=== PATIENT | female | born 1955 | race Caucasian/White ===

== ENCOUNTER 2023-10-30 11:32 | Outpatient (AMB) | payer MEDICARE, MEDICAID, SELFPAY ==
--- NOTE | 2023-10-30 11:32 | A.OFFPC_ITS ---
Vital Signs 10/30/23 11:40 Height 4 ft 9.87 in Weight 143 lb BMI 30.0 BP 134/80 Blood Pressure Location Rt brachial Position Sitting Respiration 14 Pulse 101 H Pulse Source Pulse Oximeter Temp 97.9 F Temp Source Oral Pulse Oximetry (%) 96 Oxygen Delivery Method Room Air Intake Visit Reasons: MAHESH From [facility] Intake Note: New patient visit Hole Puncher Strap Required: No Allergies No Known Allergies Allergy (Verified 10/30/23 11:37) Medication List - Last Reconciled 10/30/23 by Kerline Cruz PA-C amitriptyline 25 mg PO BEDTIME amlodipine 5 mg PO DAILY gabapentin 100 mg PO TID rosuvastatin 20 mg PO BEDTIME Tobacco use date assessed: 10/30/23 Fall risk assessment: No Falls in past year Last assessed Fall Risk: 10/30/23 Dental Screening Dental Screen Date: 10/30/23 Did you have a dental visit in the last 12 months?: No Did you have a dental problem in the last 6 months where you did not have access to dental care?: No Was dental information given to patient?: Patient declined HPI MAHESH From [facility] HPI Details Patient is a 68-year-old female with a significant past medical history hypertension, hyperlipidemia, anxiety, chronic neck pain and ifg. CV: bp today 134/80 Psych: She recently lost her brother this last year then a few months ago lost her sister from [place]. She states unexpectedly this last month she lost her sister. She states that her sister who she was close with called her in the middle of the night and on the phone with her. No SI/HI. -living with her other sister as she has dementia which has also been a stre ssor. She states she will not leave her. Musculoskeletal: Still has ongoing neck pain. Does not want to see physiatry yet. She feels ok with gabapentin and amitriptyline. She uses fioricet intermittently. Colonoscopy is scheduled in November Mammo: [id number] Bone density: UTD, -osteopenia [facility] Medical History (Updated 10/30/23 @ 12:08 by Kerline Cruz PA-C) Tension headache IFG (impaired fasting glucose) Hyperlipidemia HTN (hypertension) Generalized anxiety disorder Chronic neck pain Alkaline phosphatase elevation Surgical History (Updated 10/30/23 @ 11:48 by Ambika Haines CMA) S/P cervical discectomy Family History (Updated 10/30/23 @ 11:49 by Ambika Haines CMA) Mother Colon cancer Heart attack Social History Housing: Other (mobile home with sister) Cigarette Packs Per Day: 1 Cigarettes Per Day: 10 Years Smoked: 2 e-Cigarette/Vaping Use: Never Used service: No Current occupational status: retired Cognitive needs: No Vision needs: Yes (glasses) Questionnaire AUDIT C Alcohol Use Questionnaire (AUDIT-C) 1. How often do you have a drink containing alcohol?: Never 3. How often do you have six or more drinks on one occasion?: Never Total Score: 0 Physical exam (Primary Care) Const Orientation/consciousness: patient oriented x3 HENMT Ears: hearing grossly normal bilaterally Neck Thyroid: Thyroid normal Lymphatic: no lymphadenopathy noted Resp Auscultation: clear to auscultation bilaterally Cardio Rate: regular rate Rhythm: regular rhythm Heart sounds: S1 normal heart sound present and S2 normal heart sound present GI Inspection: Yes normal to inspection Palpation (GI): Soft to palpation and Other GI palpation findings present (nontender, no cva tenderness) Auscultation: normoactive bowel sounds Rectal Exam - Female: deferred Skin General skin exam: no rashes or lesions noted Neuro General: patient oriented x3, gait normal and no focal motor deficits Assessment and Plan Assessment & Plan (1) Generalized anxiety disorder: Code(s): F41.1 - Generalized anxiety disorder Plan: offered referral to [facility] right now. (2) HTN (hypertension): Code(s): I10 - Essential (primary) hypertension Qualifiers: Hypertension type: primary hypertension Qualified Code(s): I10 - Essential (primary) hypertension Plan: bp wnl. continue current plan (3) Hyperlipidemia: Code(s): E78.5 - Hyperlipidemia, unspecified Qualifiers: Hyperlipidemia type: mixed hyperlipidemia Qualified Code(s): E78.2 - Mixed hyperlipidemia Plan: continue crestor. lfts and lipids ordered (4) IFG (impaired fasting glucose): Code(s): R73.01 - Impaired fasting glucose Plan: a1c ordered (5) Tension headache: Code(s): G44.209 - Tension-type headache, unspecified, not intractable Plan: continue current treatment plan Orders: Orders Comprehensive [place]. Panel Fast Today E78.5 - Hyperlipidemia, unspecified, F41.1 - Generalized anxiety disorder, G44.209 - Tension-type headache, unspecified, not intractable, I10 - Essential (primary) hypertension, R73.01 - Impaired fasting glucose TSH reflex Free T4 Today E78.5 - Hyperlipidemia, unspecified, F41.1 - Generalized anxiety disorder, G44.209 - Tension-type headache, unspecified, not intractable, I10 - Essential (primary) hypertension, R73.01 - Impaired fasting glucose Lipid Panel Today E78.5 - Hyperlipidemia, unspecified, F41.1 - Generalized anxiety disorder, G44.209 - Tension-type headache, unspecified, not intractable, I10 - Essential (primary) hypertension, R73.01 - Impaired fasting glucose Hemoglobin A1c Today R73.01 - Impaired fasting glucose Medications: New amitriptyline 25 mg PO BEDTIME 90 tabs 3RF amlodipine 5 mg PO DAILY 90 tabs 3RF ausihtlymc-krmxeetrnmxvj-afnq 50-300-40 mg (Fioricet) 1 cap PO Q8H PRN 30 caps 0RF pain gabapentin 100 mg PO TID 90 days 270 caps 3RF rosuvastatin 20 mg PO BEDTIME 90 tabs 3RF Coding Level of Care Code Est Pt Level 4 (08732) Complex EM visit Add On G2211 Diagnoses Generalized anxiety disorder F41.1 Primary hypertension I10 Hypertension type: primary hypertension Mixed hyperlipidemia E78.2 Hyperlipidemia type: mixed hyperlipidemia IFG (impaired fasting glucose) R73.01 Tension headache G44.209
[2023-10-30 11:40] VITALS: BP 134/80; PULSE 101; RESP 14; TEMP 36.6; O2SAT 96
== END 2023-10-30 12:22 | disposition home or self-care (01) ==
PROVIDERS: PCP Physician Assistant; Visit Provider Physician Assistant
DX: F41.1 Generalized anxiety disorder (principal); I10 Essential (primary) hypertension; E78.2 Mixed hyperlipidemia; R73.01 Impaired fasting glucose; G44.209 Tension-type headache, unspecified, not intractable
CPT/HCPCS: 99214; G2211

== ENCOUNTER 2023-12-04 09:14 | Outpatient (AMB) | payer MEDICARE, MEDICAID, SELFPAY ==
--- NOTE | 2023-12-04 09:39 | MHC.PC.OV ---
Vital Signs 12/04/23 09:40 Height 4 ft 9.87 in Weight 143 lb BMI 30.0 BP 110/80 Blood Pressure Location Lt brachial Position Sitting Respiration 14 Pulse 80 Pulse Source Pulse Oximeter Pulse Oximetry (%) 97 Oxygen Delivery Method Room Air Intake Visit Reasons: bp check, grief check Cosmetics Demonstrator Required: No Allergies No Known Allergies Allergy (Verified 12/04/23 09:39) Medication List - Last Reconciled 12/04/23 by Kerline Cruz PA-C amitriptyline 25 mg PO BEDTIME amlodipine 5 mg PO DAILY nahrdtcvtr-zboiokwiirrww-smkt 50-300-40 mg (Fioricet) 1 cap PO Q8H PRN gabapentin 100 mg PO TID 90 days rosuvastatin 20 mg PO BEDTIME Tobacco use date assessed: 10/30/23 Dental Screening Dental Screen Date: 10/30/23 HPI bp check, grief check HPI Details Patient is a 68-year-old female with a significant past medical history hypertension, hyperlipidemia, anxiety, chronic neck pain and ifg. CV: bp today 110/80. on norvasc and tolerates this well. Psych: She recently lost her brother this last year then a few months ago lost her sister from [place]. She states unexpectedly this last month she lost her sister. She states that her sister who she was close with called her in the middle of the night and on the phone with her. No SI/HI. She states that the amitriptyline is helpful for calming her down at night but sometimes she gets panic attacks at night and has a hard time falling asleep. -living with her other sister as she has dementia which has also been a stressor. She states she will not leave her. Musculoskeletal: Still has ongoing neck pain. Does not want to see physiatry yet. She feels ok with gabapentin and amitriptyline. She uses fioricet intermittently. Colonoscopy: she rescheduled to April. Mother had colon ca. Mammo: UTD, 2023 Bone density: UTD, -osteopenia [facility] Medical History (Updated 10/30/23 @ 12:08 by Kerline Cruz PA-C) Tension headache IFG (impaired fasting glucose) Hyperlipidemia HTN (hypertension) Generalized anxiety disorder Chronic neck pain Alkaline phosphatase elevation Surgical History S/P cervical discectomy Family History (Updated 10/30/23 @ 11:49 by Ambika Haines CMA) Mother Colon cancer Heart attack Social History (Updated 10/30/23 @ 11:40 by Ambika Haines CMA) Housing: Other (mobile home with sister) Cigarette Packs Per Day: 1 Cigarettes Per Day: 10 Years Smoked: 2 e-Cigarette/Vaping Use: Never Used service: No Current occupational status: retired Cognitive needs: No Vision needs: Yes (glasses) Questionnaire PHQ-9 Over the last 2 weeks, how often have you been bothered by any of the following problems? 1. Little interest or pleasure in doing things: several days 2. Feeling down, depressed, or hopeless: several days 3. Trouble falling or staying asleep, or sleeping too much: several days 4. Feeling tired or having little energy: several days 5. Poor appetite or overeating: several days 6. Feeling bad about yourself - or that you are a failure or have let yourself or your family down: several days 7. Trouble concentrating on things, such as reading the newspaper or watching television: several days 8. Moving or speaking so slowly that other people could have noticed. Or the opposite - being so fidgety or restless that you have been moving around a lot more than usual: several days 9. Thoughts that you would be better off or of hurting yourself in some way: not at all Total score: 8 Depression Screening Interpretation: Positive Depression Screening Done: Yes 13386 - PHQ-9 Billing: Yes Source: Developed by Drs. Colin Sinclair, Sheeba Delarosa, Bronson Laurent and colleagues, with an educational neris from [employer]. LOVE-7 AMB Questionnaire LOVE-7 Date LOVE - 7 assessed: 12/04/23 Feeling nervous, anxious, or on edge: 1 = Several days Not being able to stop or control worryin = Several days Worrying too much about different things: 1 = Several days Trouble relaxin = Several days Being so restless that it is hard to sit still: 1 = Several days Becoming easily annoyed or irritable: 1 = Several days Feeling afraid as if something awful might happen: 1 = Several days Total LOVE-7 score (0-4 normal; 5-9 mild; 10-14 moderate; 15-21 severe): 7 Source: Developed by Drs. Colin Sinclair, Sheeba Delarosa, Bronson Laurent and colleagues, with an educational neris from [employer]. LOVE-7 Assessment Billing LOVE-7 Assessment Tool: LOVE-7 Assessment 01796 Physical exam (Primary Care) Vital Signs: Last Vital Signs Pulse 80 12/04/23 09:40 Resp 14 12/04/23 09:40 BP 110/80 12/04/23 09:40 Pulse Ox 97 12/04/23 09:40 Oxygen Delivery Method Room Air 12/04/23 09:40 BMI result Body Mass Index 30.0 Tobacco/Smoking Status: Tobacco use Status Tobacco use date assessed 10/30/23 12/04/23 09:41 e-Cigarette/Vaping Use Never Used 12/04/23 09:41 PHQ-9: PHQ-9 Score PHQ-9: Total score 8 12/04/23 10:06 Depression Screening Interpretation: Positive Const Orientation/consciousness: patient oriented x3 HENMT Ears: hearing grossly normal bilaterally Neck Thyroid: Thyroid normal Lymphatic: no lymphadenopathy noted Resp Auscultation: clear to auscultation bilaterally Cardio Rate: regular rate Rhythm: regular rhythm Heart sounds: S1 normal heart sound present and S2 normal heart sound present GI Inspection: Yes normal to inspection Palpation (GI): Soft to palpation and Other GI palpation findings present (nontender, no cva tenderness) Auscultation: normoactive bowel sounds Rectal Exam - Female: deferred Skin General skin exam: no rashes or lesions noted Neuro General: patient oriented x3, gait normal and no focal motor deficits Results Reviewed Results Reviewed: We will request records from [facility] Assessment and Plan Assessment & Plan (1) Hyperlipidemia: Code(s): E78.5 - Hyperlipidemia, unspecified Qualifiers: Hyperlipidemia type: mixed hyperlipidemia Qualified Code(s): E78.2 - Mixed hyperlipidemia Plan: on crestor. states that last lipids and lfts were wnl (2) HTN (hypertension): Code(s): I10 - Essential (primary) hypertension Qualifiers: Hypertension type: primary hypertension Qualified Code(s): I10 - Essential (primary) hypertension Plan: wnl today (3) IFG (impaired fasting glucose): Code(s): R73.01 - Impaired fasting glucose Plan: states she did the a1c at [facility]. she does not know her results yet (4) Generalized anxiety disorder: Code(s): F41.1 - Generalized anxiety disorder Plan: declines bh. continue amitriptyline. We will start on hydroxyzine. Discussed risks and benefits and adverse effects. Advised to avoid drinking or driving while taking this medication. Medications: New hydroxyzine HCl 25 mg PO BID PRN 30 tabs 0RF anxiety 30 days Coding Level of Care Code Est Pt Level 4 (24470) Diagnoses Mixed hyperlipidemia E78.2 Hyperlipidemia type: mixed hyperlipidemia Primary hypertension I10 Hypertension type: primary hypertension IFG (impaired fasting glucose) R73.01 Generalized anxiety disorder F41.1 Additional Codes LOVE-7 Assessment Billing - LOVE-7 Assessment Tool: LOVE-7 Assessment 58015 ([id number])
[2023-12-04 09:40] VITALS: BP 110/80; PULSE 80; RESP 14; O2SAT 97
== END 2023-12-04 10:28 | disposition home or self-care (01) ==
PROVIDERS: PCP Physician Assistant; Visit Provider Physician Assistant
DX: E78.2 Mixed hyperlipidemia (principal); I10 Essential (primary) hypertension; R73.01 Impaired fasting glucose; F41.1 Generalized anxiety disorder
CPT/HCPCS: 96127; 99214

== ENCOUNTER 2024-04-09 11:31 | Outpatient (AMB) | payer MEDICARE, MEDICAID, SELFPAY ==
--- NOTE | 2024-04-09 11:32 | A.OFFPC_ITS ---
Vital Signs 04/09/24 11:36 Height 4 ft 9.87 in Weight 145 lb 4 oz BMI 30.5 BP 138/78 Blood Pressure Location Rt brachial Position Sitting Respiration 14 Pulse 87 Pulse Source Pulse Oximeter Pulse Oximetry (%) 97 Oxygen Delivery Method Room Air Intake Visit Reasons: Persistent heartburn Intake Note: Patient complaining of persistent heartburn x couple of months Pit Slagman Required: No Allergies No Known Allergies Allergy (Verified 04/09/24 11:33) Tobacco use date assessed: 04/09/24 Fall risk assessment: No Falls in past year Last assessed Fall Risk: 04/09/24 Dental Screening Dental Screen Date: 10/30/23 HPI HPI Comments History of Present Illness Details This is a 69-year-old female with a past medical history of anxiety, hypertension, impaired fasting glucose and hyperlipidemia presenting for evaluation of acid reflux. Patient said that reflux symptoms started pretty suddenly about 4 months ago. She describes reflux as a burning in the epigastric and substernal distribution. She sometimes she taste the acid in her mouth. She does not vomit. She started taking omeprazole 20 mg hcjd-bbg-vapxlvy which helped so she increased it to 1 tab twice a day which alleviates symptoms. She ran out of it yesterday. She does not have reflux symptoms today. She avoid spicy foods. She does not drink coffee or alcohol. She does not have a lot of acidic foods in her diet. To avoid symptoms she is sleeping with her head propped up at night. She did not have issues with reflux prior to this. She denies unexplained weight loss, fevers, chills, stool changes or blood in stools. She denies chest pain, shortness of breath, dizziness or radiation of pain to the neck or arms. She has a strong family history of cardiac disease. Patient had a brother and sister from heart attacks within the past year, and her father previously from a heart attack. Patient recalls having a stress test [place] which was normal. She denies indigestion symptoms worsen with exertion. Patient says she had blood work to check her cholesterol and other labs within the past few months at [facility], but the results are not in her chart. She is compliant with her medications including rosuvastatin 20 mg and amlodipine 5 mg. Her blood pressure is mildly elevated today. ROS: Constitutional: No unexplained weight loss, fever, chills, fatigue or night sweats. Respiratory: No shortness of breath, cough or sputum production. Cardiovascular: No chest pain or heaviness. No palpitations or pedal edema. Gastrointestinal: No anorexia, nausea, vomiting or diarrhea. No abdominal pain or blood in stool. Neurologic: No headache, dizziness, syncope, unilateral weakness, ataxia, numbness or tingling in the extremities. Physical exam: Constitutional: Alert, in no distress. Head: Normocephalic. Neck: Supple, Full range of motion. No lymphadenopathy. Respiratory: Clear to auscultation. Cardiovascular: S1 S2 regular. No murmurs. Gastrointestinal: Abdomen soft, mild epigastric tenderness. non-distended. Normal bowel sounds. No palpable masses. Extremities: Warm and well perfused. No clubbing, cyanosis or edema. Psychiatric: Normal mood and affect [facility] Medical History (Updated 04/09/24 @ 12:27 by ROULA Brown) Family history of sudden cardiac GERD (gastroesophageal reflux disease) Chest discomfort Tension headache IFG (impaired fasting glucose) Hyperlipidemia HTN (hypertension) Generalized anxiety disorder Chronic neck pain Alkaline phosphatase elevation Surgical History S/P cervical discectomy Family History (Updated 10/30/23 @ 11:49 by Ambika Haines CMA) Mother Colon cancer Heart attack Social History (Updated 10/30/23 @ 11:40 by Ambika Haines CMA) Housing: Other (mobile home with sister) Patient Tobacco Use Status: Former Tobacco user Cigarette Packs Per Day: 1 Cigarettes Per Day: 10 Years Smoked: 2 e-Cigarette/Vaping Use: Never Used service: No Current occupational status: retired Cognitive needs: No Hearing needs: No Vision needs: Yes (glasses) Questionnaire PHQ-9 Over the last 2 weeks, how often have you been bothered by any of the following problems? 24571 - PHQ-9 Billing: Patient declined-do not bill Source: Developed by Drs. Colin Sinclair, Sheeba Delarosa, Bronson Laurent and colleagues, with an educational neris from [email or web address]. Thrive Questionnaire Date Thrive assessed: 04/09/24 I am a: Patient What is your living situation today?: I have a steady place to live Within the past 12 months, did the food you bought not last and you didn't have the money to get more?: Never true Within the past 12 months, did you worry whether your food would run out before you got money to buy more?: Never true Do you have trouble paying for medicines?: No Do you have trouble getting transportation to medical appointments?: No Do you have trouble paying your heating and electricity bill?: No Do you have trouble taking care of your child, family member or friend?: No Do you have trouble with day-to-day activities such as bathing, preparing meals, shopping, managing finances, etc.?: No Are you currently unemployed and looking for a job?: No Are you interested in more education?: No Please select the resources that you would like help with: None Currently or been in a relationship where the following occur: No concerns reported THRIVE Score: 0 AUDIT C Alcohol Use Questionnaire (AUDIT-C) 1. How often do you have a drink containing alcohol?: Monthly or less 2. How many drinks containing alcohol do you have on a typical day when you are drinking?: 1 or 2 3. How often do you have six or more drinks on one occasion?: Never Total Score: 1 LOVE-7 AMB Questionnaire LOVE-7 Date LOVE - 7 assessed: 04/09/24 Feeling nervous, anxious, or on edge: 1 = Several days Not being able to stop or control worryin = Several days Worrying too much about different things: 1 = Several days Trouble relaxin = Several days Being so restless that it is hard to sit still: 1 = Several days Becoming easily annoyed or irritable: 0 = Not at all Feeling afraid as if something awful might happen: 1 = Several days Total LOVE-7 score (0-4 normal; 5-9 mild; 10-14 moderate; 15-21 severe): 6 Source: Developed by Drs. Colin Sinclair, Sheeba Delarosa, Bronson Laurent and colleagues, with an educational neris from [email or web address]. LOVE-7 Assessment Billing LOVE-7 Assessment Tool: LOVE-7 Assessment 91367 Physical exam (Primary Care) Vital Signs: Last Vital Signs Pulse 87 04/09/24 11:36 Resp 14 04/09/24 11:36 BP 138/78 04/09/24 11:36 Pulse Ox 97 04/09/24 11:36 Oxygen Delivery Method Room Air 04/09/24 11:36 BMI result Body Mass Index 30.5 Tobacco/Smoking Status: Tobacco use Status Tobacco use date assessed 04/09/24 04/09/24 11:38 Patient Tobacco Use Status Former Tobacco user 04/09/24 11:38 e-Cigarette/Vaping Use Never Used 04/09/24 11:38 Thrive Assessment: Date of Thrive Assessment Date Thrive assessed 04/09/24 04/09/24 11:38 Currently or been in a relationship where the following occur: No concerns re ported Office Procedures EKG Details: EKG shows normal sinus rhythm and ventricular rate of 84 beats per minute, no ischemic changes. Reviewed by Dr. Arizmendi. 01400-Tuzargsttuwndioma, Complete Coding Level of Care Code Est Pt Level 4 (06413) Complex EM visit Add On G2211 Diagnoses GERD (gastroesophageal reflux disease) K21.9 Chest discomfort R07.89 Family history of sudden cardiac Z82.41 CPT Codes EKG - CPT: 18429-Izswukkzgvokmyvfv, Complete ([id number]) Additional Codes LOVE-7 Assessment Billing - LOVE-7 Assessment Tool: LOVE-7 Assessment 58606 ([id number]) Assessment & Plan Assessment & Plan (1) GERD (gastroesophageal reflux disease): Code(s): K21.9 - Gastro-esophageal reflux disease without esophagitis Category: Medical (2) Chest discomfort: Code(s): R07.89 - Other chest pain Category: Medical (3) Family history of sudden cardiac : Code(s): Z82.41 - Family history of sudden cardiac Category: Medical Plan Patient reports chest burning associated with reflux is alleviated when she takes omeprazole 20 mg twice daily which supports diagnosis of GERD. EKG shows no ischemic changes. Given epigastric discomfort and persistent reflux we will check labs and consider referral to Gastroenterology for further evaluation pending results. Differential includes H pylori infection. Patient advised to remain off omeprazole which she stopped yesterday. Start Pepcid 20 mg twice daily, stop it after 2 weeks and perform H pylori stool test 24 hours after last dose. After the stool sample is collected she can resume Pepcid. She has multiple cardiac risk factors and two cardiac sudden deaths of siblings within the past year and a parent who of a heart attack. We will proceed with nuclear stress test. We will follow up based on test results. She has a follow up scheduled in [facility] with PCP. Orders: Orders H pylori Ag Stool Today K21.9 - Gastro-esophageal reflux disease without esophagitis Complete Blood Count no Diff Today K21.9 - Gastro-esophageal reflux disease without esophagitis Comprehensive Met. Panel Today K21.9 - Gastro-esophageal reflux disease without esophagitis Amylase Today K21.9 - Gastro-esophageal reflux disease without esophagitis CA stress test Today R94.31 - Abnormal electrocardiogram [ECG] [EKG] AMB EKG-In Office Today R07.89 - Other chest pain Lipase Today K21.9 - Gastro-esophageal reflux disease without esophagitis NM cardiolite stress test Today R07.89 - Other chest pain, Z82.41 - Family history of sudden cardiac Medications: New famotidine 20 mg PO BID 60 tabs 3RF Patient Instructions: Take Famotidine 20 mg twice daily. Stop medication in 2 weeks, then perform H. pylori stool test 24 hours after last dose of medication. You can then resume the medication once the sample is collected.
[2024-04-09 11:36] VITALS: BP 138/78; PULSE 87; RESP 14; O2SAT 97; BMI 30.5
== END 2024-04-09 12:22 | disposition home or self-care (01) ==
PROVIDERS: PCP Physician Assistant; Visit Provider Physician Assistant Medical
DX: K21.9 Gastro-esophageal reflux disease without esophagitis (principal); R07.89 Other chest pain; Z82.41 Family history of sudden cardiac death

== ENCOUNTER → 2024-04-09 11:31 | Outpatient (BNVA) | payer MEDICARE, MEDICAID, SELFPAY | PROVIDERS: PCP Physician Assistant; Visit Provider Physician Assistant Medical | DX: K21.9 Gastro-esophageal reflux disease without esophagitis (principal); R07.9 Chest pain, unspecified; Z82.41 Family history of sudden cardiac death | CPT/HCPCS: 93005; 96127; 99212 ==

== ENCOUNTER 2024-06-03 08:38 | Outpatient (AMB) | payer MEDICARE, MEDICAID, SELFPAY ==
--- NOTE | 2024-06-03 08:45 | A.OFFPC_ITS ---
Vital Signs 06/03/24 08:48 Height 4 ft 9.87 in Weight 145 lb 8 oz BMI 30.5 BP 114/82 Blood Pressure Location Rt brachial Position Sitting Respiration 14 Pulse 90 Pulse Source Pulse Oximeter Pulse Oximetry (%) 98 Oxygen Delivery Method Room Air Intake Visit Reasons: f/u bp and anxiety Intake Note: Follow up htn and anxiety. Still having heartburn, medication is not working. [facility] Pharmacy Required: No Allergies No Known Allergies Allergy (Verified 06/03/24 08:45) Medication List - Last Reconciled 06/03/24 by Kerline Cruz PA-C amitriptyline 25 mg PO BEDTIME amlodipine 5 mg PO DAILY mhywlskgdc-hrjnttvqwnmns-vjzm 50-300-40 mg (Fioricet) 1 cap PO Q8H PRN gabapentin 100 mg PO TID 90 days hydroxyzine HCl 25 mg PO BID PRN 30 days rosuvastatin 20 mg PO BEDTIME Tobacco use date assessed: 06/03/24 Dental Screening Dental Screen Date: 10/30/23 HPI f/u bp and anxiety HPI Details History of Present Illness Patient is a 69-year-old female with a significant past medical history hypertension, hyperlipidemia, anxiety, chronic neck pain and ifg. CV: bp today 114/82. on norvasc and tolerates this well. She has an upcoming stress test. recently saw my colleague for atypical chest pain but does have a fam hx of sudden cardiac . It was felt that the chest pain was related to GERD. GI: Her symptoms of GERD began recently and have become progressively bothersome, particularly manifesting as heartburn and regurgitation after meals. The patient reports that the sensation of food getting stuck and a burning symptom worsens at night. She has tried hiuv-vvn-syffhhy famotidine and omeprazole, with minimal relief. The symptoms are exacerbated by lying down and certain food triggers. The patient experiences temporary improvement with omeprazole, although cost poses an issue. The patient's dysphagia, described as a sensation of food sticking in the throat, occurs inconsistently. She denies choking but reports discomfort when food feels trapped in the throat until it is released by burping. Psych: She recently lost her brother this last year then a few months ago lost h er sister from [place] and her niece. She states unexpectedly this last month she lost her sister. No SI/HI. She states that the amitriptyline is helpful for calming her down at night but sometimes needs hydroxyizine. She is open to seeing a therapist. -living with her other sister as she has dementia which has also been a stressor. She states she will not leave her. Musculoskeletal: Still has ongoing neck pain. She is open to seeing physiatry. She feels ok with gabapentin and amitriptyline. She uses fioricet intermittently as she states it triggers headaches. Colonoscopy: she rescheduled to April. Mother had colon ca. Mammo: UTD, one density: UTD, -osteopenia Health Maintenance - Bloodwork including liver function, ki dney function, electrolytes, and complete blood count ordered. - Screening for Helicobacter pylori via stool test recommended prior to starting omeprazole. - Barium swallow study and referral to G I specialist - Referral to behavioral health for grie f counseling and managing stress from caregiving. - Encouragement to schedule necessary pr eventative screenings such as a colonoscopy and stress testing, emphasizing familial colon cancer risk. 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 - Bereavement following multiple family losses. - Involvement in cooking and household a ctivities, primary diet is self-managed. - Reports limited intake of potentially reflux-triggering foods, primarily drinking water. - Active communication with family, [facility] primarily managing sister's care responsibilities alone. Review of Systems - Gastrointestinal: Reports regurgitatio n and heartburn, worsens at night. - Musculoskeletal: Chronic pain, particu larly in the neck. - Neurologic: Denies symptoms of dexteri ty issues or cognitive impairments. - Psychiatric: Reports stress and chroni c anxiety due to caregiving duties and family losses. Physical Exam General: Well developed, well nourished, in no acute distress. Appears stated age. Cardiac: RRR, no murmurs Lungs: clear, equal breath sounds Abdomen: soft, nontender, no CVA tenderness Extremities: no edema Neuro: alert, oriented x3, mood appropriate Plan - Provide management for GERD with poten tial prescription for omeprazole after submission of the stool test for H. pylori - Recommend barium swallow study and ref erral to gastroenterology for evaluation of the esophagus. - Conduct bloodwork to evaluate liver an d kidney functions, electrolytes, and complete blood count. - Refer to behavioral health services fo r support in managing grief and caregiving-related stress. - Discuss increased dosage of amitriptyl ine for improved management of anxiety and stress-related symptoms. - Order cervical spine x-ray considering chronic neck pain and history of cervical pathology. - Encourage scheduling of appropriate pr eventative screenings, including colonoscopy, due to family history of colorectal cancer. - Suggest consultation with a physiatris t for further evaluation and management of chronic pain to potentially reduce reliance on analgesics. [facility] Medical History (Updated 06/03/24 @ 09:19 by Kerline Cruz PA-C) Family history of sudden cardiac GERD (gastroesophageal reflux disease) Chest discomfort Tension headache IFG (impaired fasting glucose) Hyperlipidemia HTN (hypertension) Generalized anxiety disorder Chronic neck pain Alkaline phosphatase elevation Surgical History S/P cervical discectomy Family History (Updated 10/30/23 @ 11:49 by Ambika Haines CMA) Mother Colon cancer Heart attack Social History (Updated 10/30/23 @ 11:40 by Ambika Haines CMA) Housing: Other (mobile home with sister) Patient Tobacco Use Status: Former Tobacco user Cigarette Packs Per Day: 1 Cigarettes Per Day: 10 Years Smoked: 2 e-Cigarette/Vaping Use: Never Used service: No Current occupational status: retired Cognitive needs: No Hearing needs: No Vision needs: Yes (glasses) Questionnaire PHQ-9 Over the last 2 weeks, how often have you been bothered by any of the following problems? 1. Little interest or pleasure in doing things: several days 2. Feeling down, depressed, or hopeless: several days 3. Trouble falling or staying asleep, or sleeping too much: several days 4. Feeling tired or having little energy: several days 5. Poor appetite or overeating: several days 6. Feeling bad about yourself - or that you are a failure or have let yourself or your family down: several days 7. Trouble concentrating on things, such as reading the newspaper or watching television: several days 8. Moving or speaking so slowly that other people could have noticed. Or the opposite - being so fidgety or restless that you have been moving around a lot more than usual: several days 9. Thoughts that you would be better off or of hurting yourself in some w ay: not at all Total score: 8 Depression Screening Interpretation: Positive Depression Screening Follow-up: Existing condition, In treatment and Community Mental Health Worker F/U Depression Screening Done: Yes 96682 - PHQ-9 Billing: Yes Source: Developed by Drs. Colin Sinclair, Sheeba Delarosa, Bronson Laurent and colleagues, with an educational neris from [email or web address]. Thrive Questionnaire Date Thrive assessed: 05/28/24 I am a: Patient What is your living situation today?: I have a steady place to live Within the past 12 months, did the food you bought not last and you didn't have the money to get more?: Never true Within the past 12 months, did you worry whether your food would run out before you got money to buy more?: Never true Do you have trouble paying for medicines?: No Do you have trouble getting transportation to medical appointments?: No Do you have trouble paying your heating and electricity bill?: No Do you have trouble taking care of your child, family member or friend?: No Do you have trouble with day-to-day activities such as bathing, preparing meals, shopping, managing finances, etc.?: No Are you currently unemployed and looking for a job?: No Are you interested in more education?: No Please select the resources that you would like help with: None Currently or been in a relationship where the following occur: No concerns reported THRIVE Score: 0 AUDIT C Alcohol Use Questionnaire (AUDIT-C) 1. How often do you have a drink containing alcohol?: Never 2. How many drinks containing alcohol do you have on a typical day when you are drinking?: 1 or 2 3. How often do you have six or more drinks on one occasion?: Never Total Score: 0 LOVE-7 AMB Questionnaire LOVE-7 Date LOVE - 7 assessed: 04/09/24 Feeling nervous, anxious, or on edge: 1 = Several days Not being able to stop or control worryin = Several days Worrying too much about different things: 1 = Several days Trouble relaxin = Several days Being so restless that it is hard to sit still: 1 = Several days Becoming easily annoyed or irritable: 1 = Several days Feeling afraid as if something awful might happen: 1 = Several days Total LOVE-7 score (0-4 normal; 5-9 mild; 10-14 moderate; 15-21 severe): 7 Source: Developed by Drs. Colin Sinclair, Sheeba Delarosa, Bronson Laurent and colleagues, with an educational neris from [email or web address]. LOVE-7 Assessment Billing LOVE-7 Assessment Tool: LOVE-7 Assessment 55509 Physical exam (Primary Care) Vital Signs: Last Vital Signs Pulse 90 06/03/24 08:48 Resp 14 06/03/24 08:48 BP 114/82 06/03/24 08:48 Pulse Ox 98 06/03/24 08:48 Oxygen Delivery Method Room Air 06/03/24 08:48 BMI result Body Mass Index 30.5 Tobacco/Smoking Status: Tobacco use Status Tobacco use date assessed 06/03/24 06/03/24 08:51 Patient Tobacco Use Status Former Tobacco user 06/03/24 08:51 e-Cigarette/Vaping Use Never Used 06/03/24 08:51 PHQ-9: PHQ-9 Score PHQ-9: Total score 8 06/03/24 09:05 Depression Screening Interpretation: Positive Depression Screening Follow-up: Existing condition, In treatment and Community Mental Health Worker F/U Thrive Assessment: Date of Thrive Assessment Date Thrive assessed 05/28/24 06/03/24 08:51 Currently or been in a relationship where the following occur: No concerns reported Coding Level of Care Code Est Pt Level 4 (04285) Complex EM visit Add On G2211 Diagnoses Generalized anxiety disorder F41.1 Primary hypertension I10 Hypertension type: primary hypertension Mixed hyperlipidemia E78.2 Hyperlipidemia type: mixed hyperlipidemia IFG (impaired fasting glucose) R73.01 GERD (gastroesophageal reflux disease) K21.9 Dysphagia R13.10 Neck pain M54.2 Additional Codes LOVE-7 Assessment Billing - LOVE-7 Assessment Tool: LOVE-7 Assessment 07772 ([id number]) PHQ-9 - 80034 - PHQ-9 Billing: Yes ([id number]) Assessment & Plan Assessment & Plan (1) Generalized anxiety disorder: Code(s): F41.1 - Generalized anxiety disorder Category: Medical (2) HTN (hypertension): Code(s): I10 - Essential (primary) hypertension Category: Medical Qualifiers: Hypertension type: primary hypertension Qualified Code(s): I10 - Essential (primary) hypertension (3) Hyperlipidemia: Code(s): E78.5 - Hyperlipidemia, unspecified Category: Medical Qualifiers: Hyperlipidemia type: mixed hyperlipidemia Qualified Code(s): E78.2 - Mixed hyperlipidemia (4) IFG (impaired fasting glucose): Code(s): R73.01 - Impaired fasting glucose Category: Medical (5) GERD (gastroesophageal reflux disease): Code(s): K21.9 - Gastro-esophageal reflux disease without esophagitis Category: Medical (6) Dysphagia: Code(s): R13.10 - Dysphagia, unspecified Category: Medical (7) Neck pain: Code(s): M54.2 - Cervicalgia Category: Medical Plan . Orders: Orders Comprehensive Met. Panel Today E78.2 - Mixed hyperlipidemia, F41.1 - Generalized anxiety disorder, I10 - Essential (primary) hypertension, K21.9 - Gastro-esophageal reflux disease without esophagitis, R13.10 - Dysphagia, unspecified, R73.01 - Impaired fasting glucose Hemoglobin A1c Today E78.2 - Mixed hyperlipidemia, F41.1 - Generalized anxiety disorder, I10 - Essential (primary) hypertension, K21.9 - Gastro-esophageal reflux disease without esophagitis, R13.10 - Dysphagia, unspecified, R73.01 - Impaired fasting glucose TSH reflex Free T4 Today E78.2 - Mixed hyperlipidemia, F41.1 - Generalized anxiety disorder, I10 - Essential (primary) hypertension, K21.9 - Gastro- esophageal reflux disease without esophagitis, R13.10 - Dysphagia, unspecified, R73.01 - Impaired fasting glucose UA CC w/rflx Micro + Cult Today E78.2 - Mixed hyperlipidemia, F41.1 - Generalized anxiety disorder, I10 - Essential (primary) hypertension, K21.9 - Gastro-esophageal reflux disease without esophagitis, R13.10 - Dysphagia, unspecified, R73.01 - Impaired fasting glucose, Z13.220 - Encounter for screening for lipoid disorders Complete Blood Count Auto Diff Today E78.2 - Mixed hyperlipidemia, F41.1 - Generalized anxiety disorder, I10 - Essential (primary) hypertension, K21.9 - Gastro-esophageal reflux disease without esophagitis, R13.10 - Dysphagia, unspecified, R73.01 - Impaired fasting glucose FL barium swallow Today K21.9 - Gastro-esophageal reflux disease without esophagitis, R13.10 - Dysphagia, unspecified XR cervical spine 3V Today M54.2 - Cervicalgia Referrals Physiatry Referral M54.2 - Cervicalgia Gastroenterology Referral K21.9 - Gastro-esophageal reflux disease without esophagitis, R13.10 - Dysphagia, unspecified, Z12.11 - Encounter for screening for malignant neoplasm of colon Behavioral Health Referral F41.1 - Generalized anxiety disorder, F43.21 - Adjustment disorder with depressed mood Medications: New amitriptyline 50 mg PO BEDTIME 90 tabs 1RF omeprazole 20 mg PO DAILY 90 caps 1RF Discontinued amitriptyline Discontinued Reason: Doctor's Order 25 mg PO BEDTIME 90 tabs 3RF
[2024-06-03 08:48] VITALS: BP 114/82; PULSE 90; RESP 14; O2SAT 98; BMI 30.5
== END 2024-06-03 09:23 | disposition home or self-care (01) ==
PROVIDERS: PCP Physician Assistant; Visit Provider Physician Assistant
DX: F41.1 Generalized anxiety disorder (principal); I10 Essential (primary) hypertension; E78.2 Mixed hyperlipidemia; R73.01 Impaired fasting glucose; K21.9 Gastro-esophageal reflux disease without esophagitis; R13.10 Dysphagia, unspecified; M54.2 Cervicalgia

== ENCOUNTER 2024-06-03 09:35 | Outpatient (REF) | payer MEDICARE, MEDICAID, SELFPAY ==
[2024-06-03 11:24] LABS: Appearance Urine Clear; Color Urine Yellow; Glucose Urine UA Negative (Negative); Leukocyte Esterase Urine Small (1+) (Negative); Nitrite Urine Negative (Negative); PH 5.5 (5.0-9.0); Specific Gravity - Urine 1.025 (1.005-1.025); UMIC TRIGGER UACC YES; Urine Blood Negative (Negative); Urine Ketones Negative (Negative); Urine Protein Trace mg/dL (Neg-Trace)
[2024-06-03 11:25] LABS: MANUAL DIFF FLAG NO
[2024-06-03 11:27] LABS: Bacteria Urine None Seen (None Seen); Hyaline Casts Urine 0-2 /LPF (0-2); RBC Urine 0-2 /HPF (0-2); UACC Culture Trigger YES; WBC Urine 21-50 /HPF (0-5)
[2024-06-03 11:36] LABS: Basophils Absolute Auto 0.1 X10*3/uL (0.0-0.2); Basophils Percent Auto 0.8 % (0-2); Eosinophils Absolute Auto 0.2 X10*3/uL (0.0-0.4); Eosinophils Percent Auto 3.9 % (0-4); Hemoglobin 13.1 g/dl (12.0-16.0); Imm Gran Abs Auto 0.02 X10*3/uL (0.00-0.03); Imm Gran Pct Auto 0.3 % (0.0-0.4); Lymphocytes Absolute Auto 2.5 X10*3/uL (1.2-4.9); Lymphocytes Percent Auto 40.6 % (20-40); Mean Corpuscular HGB Conc 32.8 g/dl (31.0-35.0); Mean Corpuscular Volume 91.7 fL (80.0-98.0); Monocytes Absolute Auto 0.7 X10*3/uL (0.1-1.2); Monocytes Percent Auto 11.4 % (2-11); Neutrophils Absolute Auto 2.7 x10*3/uL (2.0-8.3); Platelet Count 320 X10*3/uL (160-400); Red Blood Count 4.36 X10*6/uL (4.20-5.50); Red Cell Distribution Width 13.1 % (11.0-16.0); White Blood Count 6.2 X10*3/uL (4.8-10.8)
[2024-06-03 11:59] LABS: Estimated Average Glucose 111 mg/dL; Hemoglobin A1C 128.6997 umol/L; Hemoglobin A1c % 5.5 % (<6.0); Total Hemoglobin (HGBA1C) 3503.1977 umol/L
[2024-06-03 12:03] LABS: Alanine Aminotransferase 23 U/L (0-31); Albumin Level 4.2 g/dL (3.5-5.0); Alkaline Phosphatase 93 U/L (39-117); Anion Gap 12 (12-20); Aspartate Amino Transferase 25 U/L (5-31); Bilirubin Total 0.2 mg/dL (0.0-1.0); Blood Urea Nitrogen 14 mg/dL (9-16); Calcium 9.5 mg/dL (8.4-10.2); Carbon Dioxide 24 mmol/L (22-29); Chloride 109 mmol/L (96-108); Estimated Glomerular Filt Rate > 60; Glucose Random 87 mg/dL (60-115); Potassium 3.5 mmol/L (3.3-5.1); Sodium 141 mmol/L (135-145); Total Protein 7.4 g/dL (6.5-8.0)
== END 2024-06-03 09:36 | disposition home or self-care (01) ==
LOC: HO.WFDLDS 09:35
PROVIDERS: Visit Provider Physician Assistant
DX: M54.2 Cervicalgia (principal); K21.9 Gastro-esophageal reflux disease without esophagitis; R13.10 Dysphagia, unspecified; I10 Essential (primary) hypertension; R73.01 Impaired fasting glucose; E78.2 Mixed hyperlipidemia; F41.1 Generalized anxiety disorder; R82.90 Unspecified abnormal findings in urine
CPT/HCPCS: 36415; 80053; 81001; 83036; 84443; 85025; 87086; 96127; 99212

== ENCOUNTER → 2024-07-21 09:54 | Outpatient (REF) | payer MEDICARE, MEDICAID, SELFPAY ==
--- NOTE | ~2024-07-21 | NM_ITS ---
EXERCISE MYOCARDIAL PERFUSION STUDY INDICATION: Abnormal EKG, chest pain TECHNIQUE: The patient was brought in for an exercise perfusion study on 07/21/2024. Patient performed exercise as per Rolando protocol and was injected 25 mCi of sestamibi once target heart rate was achieved. Images were obtained using the SPECT gamma camera interlaced with the gating device. Images were obtained in supine position. Resting perfusion study was performed on 07/22/2024. Patient was administered 25 mCi of sestamibi intravenously at rest. Images were then obtained in supine position. Total DLP 68 mGy-cm. Images were processed with the software and compared side to side in short axis, horizontal long axis and vertical long axis views. FINDINGS: Raw aquisition reviewed. The stress perfusion study showed no significant perfusion abnormality. Both uncorrected as well as CT attenuation corrected images were reviewed. The gated study shows normal LV systolic function with visually normal LVEF. Calculated LVEF not accurate. LV cavity is normal in size. The gated study shows normal wall thickening and contraction of segments. Resting study shows no significant perfusion defects. Gating at rest reveals normal wall motion with ejection fraction at 62%. The findings are consistent with no clear reversible or fixed perfusion defects. NM/NM cardiolite stress test IMPRESSION: 1. Myocardial perfusion imaging study shows normal myocardial perfusion. 2. Gated LVEF is 62% during rest. Visually normal during stress. 3. Transient ischemic dilatation not present. EKG component of the test reported separately. Electronically signed by: Moiz Harrison MD 07/23/2024 03:32 PM EDT
--- NOTE | 2024-07-21 09:56 | CA_ITS ---
Acquisition Time: 2024-07-21 09:57:50 Total Exercise Time: 00:05:00 Test Indications: Abnormal ECG CP Medications: AMITRIPTYLINE AMLODIPINE GABAPENTIN HYDROXYZINE ROSUVASTATIN Protocol: XI Max HR: 150 BPM 100% of Pred: 150 BPM Max BP: 178/84 mmHG Max Work Load: 4.6 METS Exercise Stress Test with exercise 5 mins of Xi Protocol, held at stage 1 due to speed issues, achieving 100% MPHR, with reports of moderate SOB, no chest pain, with isolated PACs, PVCs, one ventricular couplet, with normotensive response to exercise. Without EKG chnages meeting criteria for ischemia. In recovery, breathing returned to baseline. Nuclear images pending. Test reviewed with Dr. Harrison. Referred By: Esperanza Genao Electronically Signed By: Alfred Hudson
== END ==
LOC: HO.CARD 09:54
PROVIDERS: Visit Provider Physician Assistant Medical
DX: R07.89 Other chest pain (principal); R94.31 Abnormal electrocardiogram [ECG] [EKG]; Z82.41 Family history of sudden cardiac death
CPT/HCPCS: 78452; 93017; A9500

== ENCOUNTER → 2024-07-21 09:56 | Outpatient (BNV) | payer MEDICARE, MEDICAID, SELFPAY | DX: R06.02 Shortness of breath (principal); I49.1 Atrial premature depolarization; I49.3 Ventricular premature depolarization | CPT/HCPCS: 78452; 93016; 93018 ==

== ENCOUNTER 2024-07-29 08:43 | Outpatient (AMB) | payer MEDICARE, MEDICAID, SELFPAY ==
--- NOTE | 2024-07-29 08:53 | A.OFFPC_ITS ---
Vital Signs 07/29/24 08:57 Height 4 ft 9.87 in Weight 144 lb 6 oz BMI 30.3 BP 114/74 Blood Pressure Location Lt brachial Position Sitting Respiration 14 Pulse 87 Pulse Source Pulse Oximeter Pulse Oximetry (%) 98 Oxygen Delivery Method Room Air Intake Visit Reasons: meds and lab follow up Intake Note: Medication follow up. Shoulder pain. Regulatory Affairs Analyst Required: No Allergies No Known Allergies Allergy (Verified 07/29/24 08:53) Medication List - Last Reconciled 07/29/24 by Kerline Cruz PA-C amitriptyline 50 mg PO BEDTIME amlodipine 5 mg PO DAILY ibgnojpyfz-kvkdkeliospcx-uiiu 50-300-40 mg (Fioricet) 1 cap PO Q8H PRN gabapentin 100 mg PO TID 90 days hydroxyzine HCl 25 mg PO BID PRN 30 days omeprazole 20 mg PO DAILY rosuvastatin 20 mg PO BEDTIME Tobacco use date assessed: 07/29/24 Fall risk assessment: No Falls in past year Last assessed Fall Risk: 07/29/24 Dental Screening Dental Screen Date: 10/30/23 HPI meds and lab follow up HPI Details Patient is a 69-year-old female with a significant past medical history hypertension, hyperlipidemia, anxiety, chronic neck pain and ifg presenting today for a follow up/an acute problem visit. Musculoskeletal: Recently has an exacerbation of her neck pain and noticed upper back pain as well that radiates into the shoulders. She states that it is worse with moving her neck from [id number]-bg-[id number] and twisting. If she takes a very big breath she will also get the pain in the upper back. She did go to the ER a couple weeks ago for chest pain and was told that she did not have any signs of ischemia and that the labs were normal along with the chest x-ray and EKG. She did have a nuclear stress test done last week which was normal. She denies any injury to her neck or back. States that she just woke up 1 morning and it was very stiff and sore. There is no radiation into the arms. The neck pain that she has at baseline is usually managed with gabapentin and amitriptyline. Sometimes it will trigger a tension headache which is resolved with Fioricet. CV: bp today 114/74. on norvasc and tolerates this well. She has an upcoming stress test. recently saw my colleague for atypical chest pain but does have a fam hx of sudden cardiac . It was felt that the chest pain was related to GERD. GI: Booked to see GI later this month and has a barium swallow scheduled August 25. Her symptoms of GERD began recently and have become progressively bothersome, particularly manifesting as heartburn and regurgitation after meals. The patient reports that the sensation of food getting stuck and a burning symptom worsens at night. She has tried cqmp-bwx-wjhldot famotidine and omeprazole, with minimal relief. The symptoms are exacerbated by lying down and certain food triggers. The patient experiences temporary improvement with omeprazole, although cost poses an issue. The patient's dysphagia, described as a sensation of food sticking in the throat, occurs inconsistently. She denies choking but reports discomfort when food feels trapped in the throat until it is released by burping. Psych: She recently lost her brother this last year then a few months ago lost her sister from [place] and her niece. She states unexpectedly this last month she lost her sister. No SI/HI. She states that the amitriptyline is helpful for calming her down at night but sometimes needs hydroxyizine. She was referred at our last visit to a therapist and had her intake last week and has an appointment later today. She states it this is going to be good for her. -living with her other sister as she has dementia which has also been a stressor. She states she will not leave her. -she is also stressed because her son is a heroin addict and living with her other son and states that it was a very messy situation because they both dated the same woman who is also living there. Colonoscopy: she rescheduled to April. Mother had colon ca. Mammo: UTD, 2023 Bone density: UTD, -osteopenia [facility] Medical History (Updated 06/03/24 @ 09:19 by Kerline Cruz PA-C) Family history of sudden cardiac GERD (gastroesophageal reflux disease) Chest discomfort Tension headache IFG (impaired fasting glucose) Hyperlipidemia HTN (hypertension) Generalized anxiety disorder Chronic neck pain Alkaline phosphatase elevation Surgical History S/P cervical discectomy Family History Mother Colon cancer Heart attack Social History (Updated 07/29/24 @ 09:02 by Ambika Haines CMA) Housing: Other (mobile home with sister) Alcohol intake: never Patient Tobacco Use Status: Former Tobacco user Cigarette Packs Per Day: 1 Cigarettes Per Day: 10 Years Smoked: 2 e-Cigarette/Vaping Use: Never Used service: No Current occupational status: retired Cognitive needs: No Hearing needs: No Vision needs: Yes (glasses) Questionnaire PHQ-9 Over the last 2 weeks, how often have you been bothered by any of the following problems? 1. Little interest or pleasure in doing things: not at all 2. Feeling down, depressed, or hopeless: several days 3. Trouble falling or staying asleep, or sleeping too much: nearly every day 4. Feeling tired or having little energy: several days 5. Poor appetite or overeating: not at all 6. Feeling bad about yourself - or that you are a failure or have let yourself or your family down: not at all 7. Trouble concentrating on things, such as reading the newspaper or watching television: not at all 8. Moving or speaking so slowly that other people could have noticed. Or the opposite - being so fidgety or restless that you have been moving around a lot more than usual: not at all 9. Thoughts that you would be better off or of hurting yourself in some way: not at all Total score: 5 Depression Screening Interpretation: Positive Depression Screening Follow-up: Existing condition, In treatment and Follow-up Visit Requested Depression Screening Done: Yes 97424 - PHQ-9 Billing: Yes Source: Developed by Drs. Colin Sinclair, Sheeba Delarosa, Bronson Laurent and colleagues, with an educational neris from [employer]. Thrive Questionnaire Date Thrive assessed: 07/29/24 I am a: Patient What is your living situation today?: I have a steady place to live Within the past 12 months, did the food you bought not last and you didn't have the money to get more?: Never true Within the past 12 months, did you worry whether your food would run out before you got money to buy more?: Never true Do you have trouble paying for medicines?: No Do you have trouble getting transportation to medical appointments?: No Do you have trouble paying your heating and electricity bill?: No Do you have trouble taking care of your child, family member or friend?: No Do you have trouble with day-to-day activities such as bathing, preparing meals, shopping, managing finances, etc.?: No Are you currently unemployed and looking for a job?: No Are you interested in more education?: No Please select the resources that you would like help with: None Currently or been in a relationship where the following occur: No concerns reported THRIVE Score: 0 AUDIT C Alcohol Use Questionnaire (AUDIT-C) 1. How often do you have a drink containing alcohol?: Never 3. How often do you have six or more drinks on one occasion?: Never Total Score: 0 LOVE-7 AMB Questionnaire LOVE-7 Date LOVE - 7 assessed: 07/29/24 Feeling nervous, anxious, or on edge: 1 = Several days Not being able to stop or control worryin = Nearly every day Worrying too much about different things: 3 = Nearly every day Trouble relaxin = Nearly every day Being so restless that it is hard to sit still: 3 = Nearly every day Becoming easily annoyed or irritable: 0 = Not at all Feeling afraid as if something awful might happen: 3 = Nearly every day Total LOVE-7 score (0-4 normal; 5-9 mild; 10-14 moderate; 15-21 severe): 16 Source: Developed by Drs. Colin Sinclair, Sheeba Delarosa, Bronson Laurent and colleagues, with an educational neris from [employer]. LOVE-7 Assessment Billing LOVE-7 Assessment Tool: LOVE-7 Assessment 32894 Physical exam (Primary Care) Vital Signs: Last Vital Signs Pulse 87 07/29/24 08:57 Resp 14 07/29/24 08:57 BP 114/74 07/29/24 08:57 Pulse Ox 98 07/29/24 08:57 Oxygen Delivery Method Room Air 07/29/24 08:57 BMI result Body Mass Index 30.3 Tobacco/Smoking Status: Tobacco use Status Tobacco use date assessed 07/29/24 07/29/24 09:02 Patient Tobacco Use Status Former Tobacco user 07/29/24 09:02 e-Cigarette/Vaping Use Never Used 07/29/24 09:02 PHQ-9: PHQ-9 Score PHQ-9: Total score 5 07/29/24 09:03 Depression Screening Interpretation: Positive Depression Screening Follow-up: Existing condition, In treatment and Follow-up Visit Requested Thrive Assessment: Date of Thrive Assessment Date Thrive assessed 07/29/24 07/29/24 09:02 Currently or been in a relationship where the following occur: No concerns reported Coding Level of Care Code Est Pt Level 4 (85348) Complex EM visit Add On G2211 Diagnoses Neck pain M54.2 IFG (impaired fasting glucose) R73.01 Primary hypertension I10 Hypertension type: primary hypertension Generalized anxiety disorder F41.1 Additional Codes LOVE-7 Assessment Billing - LOVE-7 Assessment Tool: LOVE-7 Assessment 32591 ([id number]) PHQ-9 - 50948 - PHQ-9 Billing: Yes ([id number]) Assessment & Plan Assessment & Plan (1) Neck pain: Code(s): M54.2 - Cervicalgia Category: Medical Plan: We will try prednisone taper and muscle relaxant. Discussed risks and benefits and adverse effects of this medication. Imaging of the back and neck ordered. One-week follow up to be reassessed. Sooner if anything worsens or changes. (2) IFG (impaired fasting glucose): Code(s): R73.01 - Impaired fasting glucose Category: Medical Plan: Labs are ordered. We will monitor (3) HTN (hypertension): Code(s): I10 - Essential (primary) hypertension Category: Medical Qualifiers: Hypertension type: primary hypertension Qualified Code(s): I10 - Essential (primary) hypertension Plan: WNL. Continue current regimen (4) Generalized anxiety disorder: Code(s): F41.1 - Generalized anxiety disorder Category: Medical Plan: Following with a therapist today. Feels that this will be effective. We will continue current regimen. We will monitor closely. Orders: Orders XR thoracic spine 3V Today M54.6 - Pain in thoracic spine Medications: New prednisone take 3 tab po x 3 days, take 2 tab po x 3 days, 1 tab po x 3 days 18 tabs 0RF cyclobenzaprine 10 mg PO TID PRN 30 tabs 0RF muscle spasm
[2024-07-29 08:57] VITALS: BP 114/74; PULSE 87; RESP 14; O2SAT 98; BMI 30.3
== END 2024-07-29 09:27 | disposition home or self-care (01) ==
LOC: HO.HMCFM 08:44
PROVIDERS: PCP Physician Assistant; Visit Provider Physician Assistant
DX: M54.2 Cervicalgia (principal); R73.01 Impaired fasting glucose; I10 Essential (primary) hypertension; F41.1 Generalized anxiety disorder

== ENCOUNTER → 2024-07-29 08:43 | Outpatient (BNVA) | payer MEDICARE, MEDICAID, SELFPAY | PROVIDERS: PCP Physician Assistant; Visit Provider Physician Assistant | DX: I10 Essential (primary) hypertension (principal); E78.5 Hyperlipidemia, unspecified; F41.9 Anxiety disorder, unspecified; R73.01 Impaired fasting glucose; F41.1 Generalized anxiety disorder; M54.6 Pain in thoracic spine; M54.2 Cervicalgia; G89.29 Other chronic pain | CPT/HCPCS: 96127; 99212 ==

== ENCOUNTER 2024-08-05 09:34 | Outpatient (AMB) | payer MEDICARE, MEDICAID, SELFPAY ==
--- NOTE | 2024-08-05 09:56 | MHC.PC.OV ---
Vital Signs 08/05/24 09:59 Height 4 ft 9.87 in BP 120/74 Blood Pressure Location Rt brachial Position Sitting Respiration 14 Pulse 83 Pulse Source Pulse Oximeter Pulse Oximetry (%) 97 Oxygen Delivery Method Room Air Intake Visit Reasons: back pain f/u Intake Note: Back pain follow up Route Agent Required: No Allergies No Known Allergies Allergy (Verified 08/05/24 09:56) Medication List - Last Reconciled 08/05/24 by Kerline Cruz PA-C amitriptyline 50 mg PO BEDTIME amlodipine 5 mg PO DAILY nnmqsmqrsq-ldjtrfplngpba-mnqv 50-300-40 mg (Fioricet) 1 cap PO Q8H PRN cyclobenzaprine 10 mg PO TID PRN gabapentin 100 mg PO TID 90 days hydroxyzine HCl 25 mg PO BID PRN 30 days omeprazole 20 mg PO DAILY prednisone take 3 tab po x 3 days, take 2 tab po x 3 days, 1 tab po x 3 days rosuvastatin 20 mg PO BEDTIME Tobacco use date assessed: 07/29/24 Dental Screening Dental Screen Date: 10/30/23 HPI back pain f/u HPI Details Patient is a 69-year-old female with a significant past medical history hypertension, hyperlipidemia, anxiety, chronic neck pain and ifg presenting today for a follow up/an acute problem visit. Musculoskeletal: Recently has an exacerbation of her neck pain and noticed upper back pain as well that radiates into the shoulders. She states that she did not get her x-rays completed. She is feeling a lot better since having the prednisone taper. She has 1 more day of this. She states that she has used the muscle relaxant a couple times which was also effective. 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 She also has lost multiple siblings within the last couple years. She also found out yesterday that her son is incarcerated. He suffers from substance abuse and she states that this is very stressful for her to be living in [place] when her kids are in [place]. She is traveling soon to [place] to see them. CV: bp today 120/74. on norvasc and tolerates this well. GI: Booked to see GI later this month and has a barium swallow scheduled August 25. Her symptoms of GERD began recently and have become progressively bothersome, particularly manifesting as heartburn and regurgitation after meals. She never did the stool study and does not want to do this. She tolerates omeprazole but it is not as effective as she wants it to be. [facility] Medical History (Updated 06/03/24 @ 09:19 by Kerline Cruz PA-C) Family history of sudden cardiac GERD (gastroesophageal reflux disease) Chest discomfort Tension headache IFG (impaired fasting glucose) Hyperlipidemia HTN (hypertension) Generalized anxiety disorder Chronic neck pain Alkaline phosphatase elevation Surgical History S/P cervical discectomy Family History Mother Colon cancer Heart attack Social History (Updated 07/29/24 @ 09:02 by Ambika Haines CMA) Housing: Other (mobile home with sister) Alcohol intake: never Patient Tobacco Use Status: Former Tobacco user Cigarette Packs Per Day: 1 Cigarettes Per Day: 10 Years Smoked: 2 e-Cigarette/Vaping Use: Never Used service: No Current occupational status: retired Cognitive needs: No Hearing needs: No Vision needs: Yes (glasses) Questionnaire Thrive Questionnaire Date Thrive assessed: 05/28/24 I am a: Patient What is your living situation today?: I have a steady place to live Within the past 12 months, did the food you bought not last and you didn't have the money to get more?: Never true Within the past 12 months, did you worry whether your food would run out before you got money to buy more?: Never true Do you have trouble paying for medicines?: No Do you have trouble getting transportation to medical appointments?: No Do you have trouble paying your heating and electricity bill?: No Do you have trouble taking care of your child, family member or friend?: No Do you have trouble with day-to-day activities such as bathing, preparing meals, shopping, managing finances, etc.?: No Are you currently unemployed and looking for a job?: No Are you interested in more education?: No Please select the resources that you would like help with: None Currently or been in a relationship where the following occur: No concerns reported THRIVE Score: 0 LOVE-7 AMB Questionnaire LOVE-7 Date LOVE - 7 assessed: 07/29/24 Source: Developed by Brenden Salgueroet [place], Bronson Laurent and colleagues, with an educational neris from [employer]. Physical exam (Primary Care) Vital Signs: Last Vital Signs Pulse 83 08/05/24 09:59 Resp 14 08/05/24 09:59 BP 120/74 08/05/24 09:59 Pulse Ox 97 08/05/24 09:59 Oxygen Delivery Method Room Air 08/05/24 09:59 Tobacco/Smoking Status: Tobacco use Status Tobacco use date assessed 07/29/24 08/05/24 10:01 Patient Tobacco Use Status Former Tobacco user 08/05/24 10:01 e-Cigarette/Vaping Use Never Used 08/05/24 10:01 Thrive Assessment: Date of Thrive Assessment Date Thrive assessed 05/28/24 08/05/24 10:01 Currently or been in a relationship where the following occur: No concerns reported Const Orientation/consciousness: patient oriented x3 HENMT Ears: hearing grossly normal bilaterally Neck Thyroid: Thyroid normal Lymphatic: no lymphadenopathy noted Resp Auscultation: clear to auscultation bilaterally Cardio Rate: regular rate Rhythm: regular rhythm Heart sounds: S1 normal heart sound present and S2 normal heart sound present GI Inspection: Yes normal to inspection Palpation (GI): Soft to palpation and Other GI palpation findings present (nontender, no cva tenderness) Auscultation: normoactive bowel sounds Rectal Exam - Female: deferred Skin General skin exam: no rashes or lesions noted Neuro General: patient oriented x3, gait normal and no focal motor deficits Coding Level of Care Code Est Pt Level 4 (47837) Complex EM visit Add On G2211 Diagnoses Primary hypertension I10 Hypertension type: primary hypertension Mixed hyperlipidemia E78.2 Hyperlipidemia type: mixed hyperlipidemia Neck pain M54.2 GERD (gastroesophageal reflux disease) K21.9 Assessment & Plan Assessment & Plan (1) HTN (hypertension): Code(s): I10 - Essential (primary) hypertension Category: Medical Qualifiers: Hypertension type: primary hypertension Qualified Code(s): I10 - Essential (primary) hypertension Plan: WNL. Continue current regimen (2) Hyperlipidemia: Code(s): E78.5 - Hyperlipidemia, unspecified Category: Medical Qualifiers: Hyperlipidemia type: mixed hyperlipidemia Qualified Code(s): E78.2 - Mixed hyperlipidemia Plan: We will monitor and check lipids and LFTs. Continue Crestor. (3) Neck pain: Code(s): M54.2 - Cervicalgia Category: Medical Plan: Improved. Phone number provided to physiatry again as she has a longstanding history of this. (4) GERD (gastroesophageal reflux disease): Code(s): K21.9 - Gastro-esophageal reflux disease without esophagitis Category: Medical Plan: Increase omeprazole to twice a day dosing. Follow up if no improvement or if anything worsens or changes. Medications: Changed From omeprazole 20 mg PO DAILY 90 caps 1RF To omeprazole 20 mg PO BID 180 caps 1RF
[2024-08-05 09:59] VITALS: BP 120/74; PULSE 83; RESP 14; O2SAT 97
== END 2024-08-05 10:30 | disposition home or self-care (01) ==
LOC: HO.HMCFM 09:35
PROVIDERS: PCP Physician Assistant; Visit Provider Physician Assistant
DX: I10 Essential (primary) hypertension (principal); E78.2 Mixed hyperlipidemia; M54.2 Cervicalgia; K21.9 Gastro-esophageal reflux disease without esophagitis

== ENCOUNTER → 2024-08-05 09:34 | Outpatient (BNVA) | payer MEDICARE, MEDICAID, SELFPAY | PROVIDERS: PCP Physician Assistant; Visit Provider Physician Assistant | DX: I10 Essential (primary) hypertension (principal); E78.2 Mixed hyperlipidemia; M54.2 Cervicalgia; K21.9 Gastro-esophageal reflux disease without esophagitis; Z79.899 Other long term (current) drug therapy | CPT/HCPCS: 99212 ==

== ENCOUNTER 2024-08-14 14:03 | Outpatient (AMB) | payer MEDICARE, MEDICAID, SELFPAY ==
--- NOTE | 2024-08-14 14:06 | MHC.OFFVIS ---
Vital Signs 08/14/24 14:14 Height 4 ft 9.87 in Weight 143 lb 4.807 oz BMI 30.1 BP 134/63 Blood Pressure Location Lt brachial Position Sitting Pulse 96 Intake Visit Reasons: Dysphagia Intake Note: Christine presents in the office as a new patient for Dysphagia. CC: She has the feeling that something is stuck in her throat, clears throat alot, cannot burp and when she does it is a terrible taste. She has never had GERD before and now she has it all the time. Registered Sales Assistant Required: No Allergies No Known Allergies Allergy (Verified 08/14/24 14:09) HPI Comments Details: 69 y.o F with PMH HTN, HLD, anxiety, who is here for GERD and dysphagia. Reports sx started almost 3 months ago with heartburn which comes up to throat assoc with sensation of food getting stuck in upper throat. No odynophagia. No N/V. No unintentional weight loss. Appetite is ok. No change in bowel habits. Has been taking omeprazole BID. Barium swallow nelson for 5. Fam hx: mother with crc in her 60s. Pt has only had one colonoscopy since her mother's diagnosis. [facility] Medical History (Updated 08/14/24 @ 16:35 by Elisa Baer MD) Family history of sudden cardiac GERD (gastroesophageal reflux disease) Chest discomfort Tension headache IFG (impaired fasting glucose) Hyperlipidemia HTN (hypertension) Generalized anxiety disorder Chronic neck pain Alkaline phosphatase elevation Surgical History (Updated 08/14/24 @ 14:17 by JUAN Cuello) Hx of colonoscopy S/P cervical discectomy Family History Mother Colon cancer Heart attack Social History Housing: Other (mobile home with sister) Alcohol intake: never Patient Tobacco Use Status: Former Tobacco user Cigarette Packs Per Day: 1 Cigarettes Per Day: 10 Years Smoked: 2 e-Cigarette/Vaping Use: Never Used service: No Current occupational status: retired Cognitive needs: No Hearing needs: No Vision needs: Yes (glasses) Review of Systems Const All systems reviewed & are unremarkable except as noted in HPI and below Physical Exam Vital Signs: Last Vital Signs Pulse 96 08/14/24 14:14 BP 134/63 04/25/25 14:14 BMI result Body Mass Index 30.1 No apparent distress Nonicteric Abdomen soft, nondistended Alert and oriented x3, normal gait Assessment & Plan Assessment & Plan (1) Dysphagia: Code(s): R13.10 - Dysphagia, unspecified Category: Medical (2) GERD (gastroesophageal reflux disease): Code(s): K21.9 - Gastro-esophageal reflux disease without esophagitis Category: Medical (3) Family history of colon cancer: Code(s): Z80.0 - Family history of malignant neoplasm of digestive organs Category: Medical Plan 1. Dysphagia DDx include esophageal stricture, mass, web/ring, dysmotility, EoE. Pt already on PPI. Barium swallow ordered by PCP. Plan: - Book urgent EGD with possible dilation 2. Fam hx of CRC Pt overdue for CRC screening. Due to relative high risk, only eligible for colo and not stool based testing. Plan: - [place] to be booked at the same time as egd - PEG prep reviewed and handout given Follow up after egd/colo Coding Level of Care Code New Pt Level 4 (35673) Diagnoses Dysphagia R13.10 GERD (gastroesophageal reflux disease) K21.9 Family history of colon cancer Z80.0
[2024-08-14 14:14] VITALS: BP 134/63; PULSE 96; BMI 30.1
== END 2024-08-14 15:03 | disposition home or self-care (01) ==
LOC: HO.HGI 14:04
PROVIDERS: PCP Physician Assistant; Visit Provider Internal Medicine
DX: R13.10 Dysphagia, unspecified (principal); K21.9 Gastro-esophageal reflux disease without esophagitis; Z80.0 Family history of malignant neoplasm of digestive organs
CPT/HCPCS: 99204

== ENCOUNTER → 2024-08-14 14:03 | Outpatient (BNVA) | payer MEDICARE, MEDICAID, SELFPAY | PROVIDERS: PCP Physician Assistant; Visit Provider Internal Medicine | DX: K21.9 Gastro-esophageal reflux disease without esophagitis (principal); R13.10 Dysphagia, unspecified; Z80.0 Family history of malignant neoplasm of digestive organs | CPT/HCPCS: 99202 ==

== ENCOUNTER 2024-08-25 08:44 | Outpatient (REF) | payer MEDICARE, MEDICAID, SELFPAY ==
--- NOTE | ~2024-08-25 | FL_ITS ---
EXAMINATION: XR BARIUM SWALLOW CLINICAL INFORMATION: Dysphagia COMPARISON: None available. TECHNIQUE: Routine upright barium swallow was performed with thick barium and barium coated saltine cracker. Subsequently patient was placed prone lying and thin barium was administered. FINDINGS: Following oral administration of thick barium in upright view there is normal propagation of bolus from the oral cavity through the pharynx, esophagus into stomach without any evidence of obstruction, narrowing or stricture. No laryngeal penetration or aspiration seen. Oral administration of saltine crackers coated barium there is normal oral mastication and propagation bolus from the oral cavity into esophagus and stomach. There is a ventral plate and screws for anterior fusion from C5 through C7 vertebra. On placing patient in prone lying and oral administration of thin barium there is normal antegrade flow from the stomach, pharynx with good distention of esophagus into the stomach. There is small to moderate size hiatal hernia with moderate gastroesophageal reflux. FLUOROSCOPY TIME: 2 minutes and 56 seconds. DOSE AREA PRODUCT: 157.6 uGy-m2 (microgray-meter squared) FL/FL barium swallow IMPRESSION: Small to moderate size hiatal hernia with gastroesophageal reflux. No esophageal obstruction, narrowing or stricture seen. Electronically signed by: Jorgito Bal MD 08/25/2024 01:18 PM EDT
== END 2024-08-25 08:45 | disposition home or self-care (01) ==
LOC: HO.XRAY 08:44
PROVIDERS: PCP Physician Assistant; Visit Provider Physician Assistant
DX: R13.10 Dysphagia, unspecified (principal); K21.9 Gastro-esophageal reflux disease without esophagitis
CPT/HCPCS: 74220

== ENCOUNTER → 2024-08-25 08:46 | Outpatient (BNV) | payer MEDICARE, MEDICAID, SELFPAY | PROVIDERS: PCP Physician Assistant; Visit Provider Radiology Diagnostic Radiology | DX: K44.9 Diaphragmatic hernia without obstruction or gangrene (principal) | CPT/HCPCS: 74246 ==

== ENCOUNTER 2024-09-17 06:34 | Day surgery (SDC) | payer MEDICARE, MEDICAID, SELFPAY ==
[2024-09-15 14:26] VITALS: BMI 29.9
--- NOTE | 2024-09-16 10:34 | HO.ANESPROP2 ---
HPI - Anesthesia Eval Consult details Narrative: 69yo F for Upper Endoscopy and Colonoscopy Fam hx of sudden cardiac . Sent by PCP for nuc stress - WNL PMFSH Active Problems Active Problems: All Active Problems Family history of colon cancer (Acute) Neck pain (Acute) Grief reaction (Acute) Dysphagia (Acute) Family history of sudden cardiac (Acute) GERD (gastroesophageal reflux disease) (Acute) Chest discomfort (Acute) Generalized anxiety disorder (Acute) HTN (hypertension) (Acute) Tension headache (Acute) IFG (impaired fasting glucose) (Acute) Hyperlipidemia (Acute) Past Medical History Medical History (Updated 08/14/24 @ 16:35 by Elisa Baer MD) Family history of sudden cardiac GERD (gastroesophageal reflux disease) Chest discomfort Tension headache IFG (impaired fasting glucose) Hyperlipidemia HTN (hypertension) Generalized anxiety disorder Chronic neck pain Alkaline phosphatase elevation Family History Family History Mother Colon cancer Heart attack Surgical History Surgical History (Updated 08/14/24 @ 14:17 by JUAN Cuello) Hx of colonoscopy S/P cervical discectomy Social History Social History Housing: Other (mobile home with sister) Alcohol intake: never Patient Tobacco Use Status: Former Tobacco user Cigarette Packs Per Day: 1 Cigarettes Per Day: 10 Years Smoked: 2 e-Cigarette/Vaping Use: Never Used service: No Current occupational status: retired Cognitive needs: No Hearing needs: No Vision needs: Yes (glasses) Meds Allergies Allergy/AdvReac Type Severity Reaction Status Date / Time No Known Allergies Allergy Verified 08/14/24 14:09 Exam Height,Weight and Vital Signs: Height 4 ft 10 in Weight 64.977 kg Pertinent Lab Results Pertinent Lab Results: Laboratory Tests 06/03/24 09:37 WBC 6.2 Hgb 13.1 Hct 40.0 Plt Count 320 Sodium 141 Potassium 3.5 Chloride 109 H Carbon Dioxide 24 BUN 14 Creatinine 0.75 Narrative Narrative: NM cardiolite stress test 07/2024 IMPRESSION: 1. Myocardial perfusion imaging study shows normal myocardial perfusion. 2. Gated LVEF is 62% during rest. Visually normal during stress. 3. Transient ischemic dilatation not present. EKG 03/2024 Details: EKG shows normal sinus rhythm and ventricular rate of 84 beats per minute, no ischemic changes. Reviewed by Dr. Arizmendi. Assessment and Plan Assessment Anesthesia Assessment: Chart Reviewed
[2024-09-17 06:59] VITALS: BP 138/85; PULSE 95; RESP 16; TEMP 36.3; O2SAT 97
[2024-09-17] MEDS: Lactated Ringers 1,000 ML 100 ML IVCONT (07:02)
--- NOTE | 2024-09-17 07:40 | P.CONAN_ITS ---
[facility], [facility] Active Problems Active Problems: All Active Problems Family history of colon cancer (Acute) Neck pain (Acute) Grief reaction (Acute) Dysphagia (Acute) Family history of sudden cardiac (Acute) GERD (gastroesophageal reflux disease) (Acute) Chest discomfort (Acute) Generalized anxiety disorder (Acute) HTN (hypertension) (Acute) Tension headache (Acute) IFG (impaired fasting glucose) (Acute) Hyperlipidemia (Acute) Past Medical History Medical History Family history of sudden cardiac GERD (gastroesophageal reflux disease) Chest discomfort Tension headache IFG (impaired fasting glucose) Hyperlipidemia HTN (hypertension) Generalized anxiety disorder Chronic neck pain Alkaline phosphatase elevation Functional capacity: independent ambulation Patient : No Family History Family History Mother Colon cancer Heart attack Family history of problems with anesthesia: No Surgical History Surgical History Hx of colonoscopy S/P cervical discectomy History of Problems with Anesthesia: No Social History Social History Housing: Other (mobile home with sister) Alcohol intake: never Patient Tobacco Use Status: Former Tobacco user Cigarette Packs Per Day: 1 Cigarettes Per Day: 10 Years Smoked: 2 e-Cigarette/Vaping Use: Never Used Use of substances other than those prescribed or required for medical reasons: No Advance Directives: No Advance Directives Information Provided: Yes service: No Current occupational status: retired Cognitive needs: No Hearing needs: No Vision needs: Yes (glasses) Meds Allergies Allergy/AdvReac Type Severity Reaction Status Date / Time No Known Allergies Allergy Verified 08/14/24 14:09 Active Medications: Current Medications Lactated Ringer's (Lr) 1,000 mls @ 100 mls/hr IVCONT .Q10H TASH Last Admin: 09/17/24 07:02 Dose: 100 mls/hr Exam Height,Weight and Vital Signs: Height 4 ft 10 in Weight 64.977 kg Last Vital Signs Temp 97.3 F 09/17/24 06:59 Pulse 95 09/17/24 06:59 Resp 16 09/17/24 06:59 BP 138/85 09/17/24 06:59 Pulse Ox 97 09/17/24 06:59 O2 Del Method Room Air 09/17/24 06:59 Airway Mallampati Class: II TM Dist: >3cm Neck ROM: Full Heart: RRR Lungs: CTA Assessment and Plan Assessment Anesthesia Assessment: Anesthesia Plan Discussed Final Anesthetic Review Family History of Problems with Anesthesia: No History of Problems with Anesthesia: No NPO: Yes ASA Class: II Final Preanesthetic Review: Meds/Allgs Chart Reviewed, Consent Obtained/Reviewed and Anes Risks/Benef Reviewed Patient Risk: Low Procedure Risk: Low Anesthetic Plan Anesthetic Plan: MAC: Disposition: Standard PACU
--- NOTE | 2024-09-17 07:51 | MHC.SHP ---
Pre-Procedural Eval Section A - 24 Hr Update-Section A only Date of Service: 09/17/24 Section B - Complete if H&P > 30 days Chief Complaint: Dysphagia Details of Present Illness: Family history of sudden cardiac GERD (gastroesophageal reflux disease) Chest discomfort Tension headache IFG (impaired fasting glucose) Hyperlipidemia HTN (hypertension) Generalized anxiety disorder Chronic neck pain Alkaline phosphatase elevation Surgical History (Updated 08/14/24 @ 14:17 by JUAN Cuello) Hx of colonoscopy S/P cervical discectomy Present Medications: see Short Stay Collaborative assessment Allergies: Allergies Allergy/AdvReac Type Severity Reaction Status Date / Time No Known Allergies Allergy Verified 08/14/24 14:09 Review of Systems Review of Systems Comment: Ten point ROS negative Exam Exam Comment: Gen appear: No acute distress HEENT: no icterus Chest: No overt resp distress Abd: soft, nontender, nondistended Psych: Stable affect, answering questions appropriately Neuro: A/Ox3 noted to move all extremities spontaneously Ext: no peripheral edema Plan Diagnosis/Plan: Unchanged I have reviewed the history and physical and performed a pertinent physical examination on my patient. No changes have occurred unless specified. Time Spent With Patient Time: Total time managing care of this patient today ____ minutes.
--- NOTE | 2024-09-17 08:29 | P.OPN-COLO_ITS ---
Colonoscopy Operative Note Operative Note Date of Service: 09/17/24 Narrative: Procedure: Upper endoscopy and colonoscopy Indication: Dysphagia, fam hx of colon cancer Endoscopist: Elisa Baer MD Anesthesia Provider: Dr Louisa Proctor Anesthesia type: MAC Instrument: [id number] and [id number]-[id number] EGD Procedure:?? The procedure, indications, preparation and potential complications were reviewed with the patient, who indicated understanding and gave written informed consent to proceed. The endoscope was introduced through the mouth, and advanced to the 2nd part of the duodenum. The mucosa was carefully examined on slow withdrawal of the endoscope. The patient tolerated the procedure well. There were no immediate complications.? EGD Findings:? * Oropharynx: A 15 mm villiform plaque was noted on hard palate. * Esophagus:? Normal esophageal mucosa was noted. The Z-line was at 31 cm displaced by the hiatal hernia with the diaphragmatic hiatus at 35 cm. Cold forceps biopsies were taken from the esophagus to rule out eosinophilic esophagitis. * Stomach:?Erythema and erosions in the antrum with scant heme. Retroflexion was performed in the cardia. Random cold forceps biopsies were taken from the antrum and body of the stomach. * Duodenum:? Normal duodenal mucosa. Additional intervention: Soft tip Savary wire was introduced through the biopsy channel of the gastroscope and advanced to the antrum. ?The gastroscope was then backed out. ?Savary Kisha bougie was advanced over the guidewire and the esophagus was dilated to 17 mm with resistance felt. ?On relook, no heme or tear was noted. ? Colonoscopy Procedure:? The patient was then turned for the colonoscopy. A digital rectal exam was performed which was abnormal for external hemorrhoids.? A distal attachment cap was affixed to the tip of the scope and the colonoscope was then inserted through the anus and advanced through the colon and advanced to the cecum at 70 cm and terminal ileum.? Appendiceal orifice and ileocecal valve were identified. Mucosa was carefully examined under high definition white light as the instrument was slowly withdrawn in a retrograde panoramic fashion. Retroflexion was performed in ascending colon and rectum. The procedure was not difficult. The quality of the prep was BBPS: 3+2+3 = adequate Withdrawal time 6 minutes Limitations: No limitations Findings: Mucosa: Normal colon and terminal ileum mucosa. Protruding lesions: * 1 sessile polyp of size 5 mm was noted in sigmoid colon. Cold snare polypectomy was performed. The polyp was completely removed and retrieved. * Small internal hemorrhoids without stigmata of recent bleeding. Excavated lesions: * Moderate to severe diverticulosis of left sided colon Impression: 1. Hard palate lesion 2. Normal esophagus (biopsy, dilation) 3. Gastritis (biopsy) 4. Normal duodenum 5. Normal colon and terminal ileum mucosa 6. 1 polyp removed 7. Diverticulosis 8. Hemorrhoids Recommendations:?? * ENT referral for hard palate lesion * Follow path results * Cont PPI * Avoid NSAIDs * Repeat colonoscopy for CRC screening in 5 years due to family history
[2024-09-17 08:33] VITALS: BP 113/75; PULSE 72; RESP 16; TEMP 36.1; O2SAT 96
[2024-09-17 08:51] VITALS: BP 125/80; PULSE 72; RESP 18; TEMP 36.1; O2SAT 97
--- NOTE | 2024-09-17 10:14 | HO.POSTANES ---
Post Anesthesia Evaluation Post Anesthesia Evaluation Date of Service: 09/17/24 Vital Signs: Vital Signs Temp Pulse Resp BP Pulse Ox O2 Del Method 09/17/24 08:51 97.0 F 72 18 125/80 97 Room Air 09/17/24 08:33 97.0 F 72 16 113/75 96 Room Air 09/17/24 06:59 97.3 F 95 16 138/85 97 Room Air Anesthesia: Monitored Mental Status: Awake Pain Control: Satisfactory Nausea/Vomiting: None Hydration: Adequate Anesthesia-Related Issues: No Anes. Related Issues
== END 2024-09-17 09:04 | disposition home or self-care (01) ==
PROVIDERS: PCP Physician Assistant; Visit Provider Internal Medicine
PROC: (CPT 45385; principal; 2024-09-17 07:30)
DX: Z12.11 Encounter for screening for malignant neoplasm of colon (principal); D12.5 Benign neoplasm of sigmoid colon; K57.30 Diverticulosis of large intestine without perforation or abscess without bleeding; K64.4 Residual hemorrhoidal skin tags; Z80.0 Family history of malignant neoplasm of digestive organs; K29.60 Other gastritis without bleeding; K44.9 Diaphragmatic hernia without obstruction or gangrene; K13.79 Other lesions of oral mucosa; K21.00 Gastro-esophageal reflux disease with esophagitis, without bleeding; R13.10 Dysphagia, unspecified; I10 Essential (primary) hypertension; E78.5 Hyperlipidemia, unspecified; Z87.891 Personal history of nicotine dependence
CPT/HCPCS: 45385; 43239; 43248; 88305; 88313; 88342; C1769; J2003; J2704

== ENCOUNTER → 2024-09-17 06:34 | Outpatient (BNV) | payer MEDICARE, MEDICAID, SELFPAY | PROVIDERS: PCP Physician Assistant; Visit Provider Internal Medicine | DX: Z12.11 Encounter for screening for malignant neoplasm of colon (principal); Z80.0 Family history of malignant neoplasm of digestive organs; D12.5 Benign neoplasm of sigmoid colon; K57.90 Diverticulosis of intestine, part unspecified, without perforation or abscess without bleeding; K64.8 Other hemorrhoids; R13.10 Dysphagia, unspecified; K13.79 Other lesions of oral mucosa; K29.70 Gastritis, unspecified, without bleeding; K44.9 Diaphragmatic hernia without obstruction or gangrene | CPT/HCPCS: 43239; 43248; 45385 ==

== ENCOUNTER 2024-09-24 12:46 | Outpatient (AMB) | payer MEDICARE, MEDICAID, SELFPAY ==
--- NOTE | 2024-09-24 12:52 | A.OFFPC_ITS ---
Vital Signs 09/24/24 12:59 Height 4 ft 10 in Weight 147 lb 8 oz BMI 30.8 BP 126/80 Blood Pressure Location Lt brachial Position Sitting Respiration 14 Pulse 83 Pulse Source Pulse Oximeter Pulse Oximetry (%) 96 Oxygen Delivery Method Room Air Intake Visit Reasons: ent referral Intake Note: Wants to discuss colonoscopy and endoscopy results. Was told there was a lesion on roof of mouth. Metallurgical Or Materials Technician Required: No Allergies No Known Allergies Allergy (Verified 09/24/24 12:56) Medication List - Last Reconciled 09/24/24 by Kerline Cruz PA-C amitriptyline 50 mg PO BEDTIME amlodipine 5 mg PO DAILY mieayapyix-ubkkvnykcqqrg-awfd 50-300-40 mg (Fioricet) 1 cap PO Q8H PRN gabapentin 100 mg PO TID 90 days hydroxyzine HCl 25 mg PO BID PRN 30 days rosuvastatin 20 mg PO BEDTIME Tobacco use date assessed: 07/29/24 Fall risk assessment: No Falls in past year Last assessed Fall Risk: 09/24/24 Dental Screening Dental Screen Date: 09/24/24 Did you have a dental visit in the last 12 months?: No Did you have a dental problem in the last 6 months where you did not have access to dental care?: No Was dental information given to patient?: Patient has dentist HPI ent referral HPI Details Patient is a 69-year-old female with a significant past medical history hypertension, hyperlipidemia, anxiety, chronic neck pain and ifg presenting today for a follow up. HEENT: noted to have hard palate lesion on egd. States cannot feel it. She is seeing ENT 10/02/24. She states that she has no idea how long this has been there because she rarely takes her teeth out. She states that she does not like being without her teeth and she does not soak her denture. She has not been to a dentist in many years. Musculoskeletal: Recently has an exacerbation of her neck pain and noticed upper back pain as well that radiates into the shoulders. She states that she did not get her x-rays completed. She is feeling a lot better since having the prednisone taper. She has 1 more day of this. She states that she has used the muscle relaxant a couple times which was also effective. 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 She also has lost multiple siblings within the last couple years. She also found out recently that her son overdosed and this has been very stressful for her living in [place] while her children are in [place].. CV: bp today 126/80. on norvasc and tolerates this well. GI: She recently saw GI for her acid reflux symptoms. She is no longer experiencing sx relief with omeprazole. She is following with GI on 09/30/24. She had a double endoscopy which shows the following: Colonoscopy/EGD: Impression: 1. Hard palate lesion 2. Normal esophagus (biopsy, dilation) 3. Gastritis (biopsy) 4. Normal duodenum 5. Normal colon and terminal ileum mucos a 6. 1 polyp removed 7. Diverticulosis 8. Hemorrhoids Recommendations:?? * ENT referral for hard palate lesion * Follow path results * Cont PPI * Avoid NSAIDs * Repeat colonoscopy for CRC screening in 5 years due to family history I did refer her to ENT when I receive the colonoscopy report. [facility] Medical History Family history of sudden cardiac GERD (gastroesophageal reflux disease) Chest discomfort Tension headache IFG (impaired fasting glucose) Hyperlipidemia HTN (hypertension) Generalized anxiety disorder Chronic neck pain Alkaline phosphatase elevation Surgical History Hx of colonoscopy S/P cervical discectomy Family History Mother Colon cancer Heart attack Social History Housing: Other (mobile home with sister) Alcohol intake: never Patient Tobacco Use Status: Former Tobacco user Cigarette Packs Per Day: 1 Cigarettes Per Day: 10 Years Smoked: 2 e-Cigarette/Vaping Use: Never Used service: No Current occupational status: retired Cognitive needs: No Hearing needs: No Vision needs: Yes (glasses) Questionnaire Thrive Questionnaire Date Thrive assessed: 05/28/24 I am a: Patient What is your living situation today?: I have a steady place to live Within the past 12 months, did the food you bought not last and you didn't have the money to get more?: Never true Within the past 12 months, did you worry whether your food would run out before you got money to buy more?: Never true Do you have trouble paying for medicines?: No Do you have trouble getting transportation to medical appointments?: No Do you have trouble paying your heating and electricity bill?: No Do you have trouble taking care of your child, family member or friend?: No Do you have trouble with day-to-day activities such as bathing, preparing meals, shopping, managing finances, etc.?: No Are you currently unemployed and looking for a job?: No Are you interested in more education?: No Please select the resources that you would like help with: None Currently or been in a relationship where the following occur: No concerns reported THRIVE Score: 0 AUDIT C Alcohol Use Questionnaire (AUDIT-C) 1. How often do you have a drink containing alcohol?: Never 3. How often do you have six or more drinks on one occasion?: Never Total Score: 0 LOVE-7 AMB Questionnaire LOVE-7 Date LOVE - 7 assessed: 07/29/24 Source: Developed by Drs. Colin Sinclair, Sheeba Delarosa, Bronson Laurent and colleagues, with an educational neris from [employer]. Physical exam (Primary Care) Tobacco/Smoking Status: Tobacco use Status Tobacco use date assessed 07/29/24 09/24/24 12:52 Patient Tobacco Use Status Former Tobacco user 09/24/24 12:52 e-Cigarette/Vaping Use Never Used 09/24/24 12:52 Thrive Assessment: Date of Thrive Assessment Date Thrive assessed 05/28/24 09/24/24 12:52 Currently or been in a relationship where the following occur: No concerns reported Const Orientation/consciousness: patient oriented x3 HENMT Other: There there are raised, erythematous, papular like lesions that coalesce to 1 large lesion that looks to be about an inch when by half a cm. Ears: hearing grossly normal bilaterally Neck Thyroid: Thyroid normal Lymphatic: no lymphadenopathy noted Resp Auscultation: clear to auscultation bilaterally Cardio Rate: regular rate Rhythm: regular rhythm Heart sounds: S1 normal heart sound present and S2 normal heart sound present GI Inspection: Yes normal to inspection Palpation (GI): Soft to palpation and Other GI palpation findings present (nontender, no cva tenderness) Auscultation: normoactive bowel sounds Rectal Exam - Female: deferred Skin General skin exam: no rashes or lesions noted Neuro General: patient oriented x3, gait normal and no focal motor deficits Results Reviewed Results Reviewed: FL/FL barium swallow IMPRESSION: Small to moderate size hiatal hernia with gastroesophageal reflux. No esophageal obstruction, narrowing or stricture seen. Diagnosis A. Stomach, antrum, biopsy: Antral-type mucosa with chronic, focally active and erosive, inflammation and regenerative changes; no Helicobacter organism seen. B. Stomach, body, biopsy: Oxyntic mucosa with mild chronic inactive inflammation; no Helicobacter organisms seen. C. Esophagus, random, biopsy: Squamous epithelium within normal limits; no inflammation seen. D. Colon, sigmoid, polypectomy: Tubular adenoma; negative for high-grade dysplasia or carcinoma. NM/NM cardiolite stress test IMPRESSION: 1. Myocardial perfusion imaging study shows normal myocardial perfusion. 2. Gated LVEF is 62% during rest. Visually normal during stress. 3. Transient ischemic dilatation not present. Coding Level of Care Code Est Pt Level 4 (05063) Complex EM visit Add On G2211 Diagnoses GERD with esophagitis K21.00 Lesion of hard palate K13.79 Primary hypertension I10 Hypertension type: primary hypertension IFG (impaired fasting glucose) R73.01 Assessment & Plan Assessment & Plan (1) GERD with esophagitis: Code(s): K21.00 - Gastro-esophageal reflux disease with esophagitis, without bleeding Category: Medical Plan: We will try switching to Protonix, Nexium does not appear to be on formulary. Discussed that there is a chance the insurance does not cover PPIs. I discussed a GERD diet with her and encouraged her to cut back on the Fioricet as much as possible. (2) Lesion of hard palate: Code(s): K13.79 - Other lesions of oral mucosa Category: Medical Plan: Has an appointment with ENT next week. (3) HTN (hypertension): Code(s): I10 - Essential (primary) hypertension Category: Medical Qualifiers: Hypertension type: primary hypertension Qualified Code(s): I10 - Essential (primary) hypertension Plan: WNL. Continue current regimen (4) IFG (impaired fasting glucose): Code(s): R73.01 - Impaired fasting glucose Category: Medical Plan: Labs ordered. We will monitor. Orders: Orders Comprehensive [place]. Panel Fast Today I10 - Essential (primary) hypertension, K13.79 - Other lesions of oral mucosa, K21.00 - Gastro-esophageal reflux disease with esophagitis, without bleeding, R73.01 - Impaired fasting glucose TSH reflex Free T4 Today I10 - Essential (primary) hypertension, K13.79 - Other lesions of oral mucosa, K21.00 - Gastro-esophageal reflux disease with esophagitis, without bleeding, R73.01 - Impaired fasting glucose Complete Blood Count Auto Diff Today I10 - Essential (primary) hypertension, K13.79 - Other lesions of oral mucosa, K21.00 - Gastro-esophageal reflux disease with esophagitis, without bleeding, R73.01 - Impaired fasting glucose Hemoglobin A1c Today R73.01 - Impaired fasting glucose Medications: New pantoprazole 20 mg PO BID 60 tabs 2RF
[2024-09-24 12:59] VITALS: BP 126/80; PULSE 83; RESP 14; O2SAT 96; BMI 30.8
== END 2024-09-24 13:24 | disposition home or self-care (01) ==
LOC: HO.HMCFM 12:46
PROVIDERS: PCP Physician Assistant; Visit Provider Physician Assistant
DX: K21.00 Gastro-esophageal reflux disease with esophagitis, without bleeding (principal); K13.79 Other lesions of oral mucosa; I10 Essential (primary) hypertension; R73.01 Impaired fasting glucose

== ENCOUNTER → 2024-09-24 12:46 | Outpatient (BNVA) | payer MEDICARE, MEDICAID, SELFPAY | PROVIDERS: PCP Physician Assistant; Visit Provider Physician Assistant | DX: K21.00 Gastro-esophageal reflux disease with esophagitis, without bleeding (principal); K13.79 Other lesions of oral mucosa; I10 Essential (primary) hypertension; R73.01 Impaired fasting glucose | CPT/HCPCS: 99212 ==

== ENCOUNTER 2025-01-06 13:54 | Outpatient (AMB) | payer MEDICARE, MEDICAID, SELFPAY ==
--- NOTE | 2025-01-06 13:59 | A.OFFPC_ITS ---
Vital Signs 01/06/25 14:04 Height 4 ft 10 in Weight 150 lb 8 oz BMI 31.5 BP 136/84 Blood Pressure Location Rt brachial Position Sitting Respiration 14 Pulse 83 Pulse Oximetry (%) 96 Oxygen Delivery Method Room Air Intake Visit Reasons: follow up Intake Note: Follow up. Had leg swelling in both legs. Went to urgent care 11/16/24 and 11/20/2024 Allergies No Known Allergies Allergy (Verified 01/06/25 14:03) Medication List - Last Reconciled 01/06/25 by Kerline Cruz PA-C amitriptyline 50 mg PO BEDTIME amlodipine 5 mg PO DAILY pktssxoeto-ewpawyyjsdywz-bpvn 50-300-40 mg (Fioricet) 1 cap PO Q8H PRN furosemide (Lasix) 20 mg PO DAILY gabapentin 100 mg PO TID 90 days hydroxyzine HCl 25 mg PO BID PRN 30 days meloxicam 15 mg PO DAILY omeprazole 20 mg PO BID rosuvastatin 20 mg PO BEDTIME Tobacco use date assessed: 01/06/25 Dental Screening Dental Screen Date: 09/24/24 HPI follow up HPI Details Patient is a 69-year-old female with a significant past medical history hypertension, hyperlipidemia, anxiety, chronic neck pain and ifg presenting today for a follow up. Went to [place] in November and had bilateral foot/ankle swelling and right calf pain. She went to the ED and had neg ultrasounds. She states that they think it was just venous insufficiency. She is going again back to [place] soon as her son is going to be having open heart surgery. HEENT: noted to have hard palate lesion on egd. She saw ENT 10/02/24 and had a bx and was told it was fine. It has resolved Musculoskeletal: Reports right knee pain that has been present for a few months. She states sometimes it feels unstable bending down with it and trying to get up. There was no trauma. No swelling. 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 She also has lost multiple siblings within the last couple years. She also found out recently that her son overdosed and this has been very stressful for her living in [place] while her children are in [place].. CV: bp today 136/80. on norvasc and tolerates this well. GI: She recently saw GI for her acid reflux symptoms. She is does not tolerate pantoprazole 40 mg. It makes her feel queasy sometimes. She states that she did better with omeprazole. She is following with GI. [facility] Medical History Family history of sudden cardiac GERD (gastroesophageal reflux disease) Chest discomfort Tension headache IFG (impaired fasting glucose) Hyperlipidemia HTN (hypertension) Generalized anxiety disorder Chronic neck pain Alkaline phosphatase elevation Surgical History Hx of colonoscopy S/P cervical discectomy Family History Mother Colon cancer Heart attack Social History Housing: Other (mobile home with sister) Alcohol intake: never Patient Tobacco Use Status: Former Tobacco user Cigarette Packs Per Day: 1 Cigarettes Per Day: 10 Years Smoked: 2 e-Cigarette/Vaping Use: Never Used service: No Current occupational status: retired Cognitive needs: No Hearing needs: No Vision needs: Yes (glasses) Questionnaire Thrive Questionnaire Date Thrive assessed: 05/28/24 I am a: Patient What is your living situation today?: I have a steady place to live Within the past 12 months, did the food you bought not last and you didn't have the money to get more?: Never true Within the past 12 months, did you worry whether your food would run out before you got money to buy more?: Never true Do you have trouble paying for medicines?: No Do you have trouble getting transportation to medical appointments?: No Do you have trouble paying your heating and electricity bill?: No Do you have trouble taking care of your child, family member or friend?: No Do you have trouble with day-to-day activities such as bathing, preparing meals, shopping, managing finances, etc.?: No Are you currently unemployed and looking for a job?: No Are you interested in more education?: No Please select the resources that you would like help with: None Currently or been in a relationship where the following occur: No concerns reported THRIVE Score: 0 LOVE-7 AMB Questionnaire LOVE-7 Date LOVE - 7 assessed: 07/29/24 Source: Developed by Drs. Colin Sinclair, Sheeba Delarosa, Bronson Laurent and colleagues, with an educational neris from [employer]. Physical exam (Primary Care) Vital Signs: Last Vital Signs Pulse 83 01/06/25 14:04 Resp 14 01/06/25 14:04 BP 136/84 01/06/25 14:04 Pulse Ox 96 01/06/25 14:04 Oxygen Delivery Method Room Air 01/06/25 14:04 BMI result Body Mass Index 31.5 Tobacco/Smoking Status: Tobacco use Status Tobacco use date assessed 01/06/25 01/06/25 14:06 Patient Tobacco Use Status Former Tobacco user 01/06/25 14:00 e-Cigarette/Vaping Use Never Used 01/06/25 14:00 Thrive Assessment: Date of Thrive Assessment Date Thrive assessed 05/28/24 01/06/25 14:00 Currently or been in a relationship where the following occur: No concerns reported Const Orientation/consciousness: patient oriented x3 HENMT Ears: hearing grossly normal bilaterally Neck Thyroid: Thyroid normal Lymphatic: no lymphadenopathy noted Resp Auscultation: clear to auscultation bilaterally Cardio Rate: regular rate Rhythm: regular rhythm Heart sounds: S1 normal heart sound present and S2 normal heart sound present GI Inspection: Yes normal to inspection Palpation (GI): Soft to palpation and Other GI palpation findings present (nontender, no cva tenderness) Auscultation: normoactive bowel sounds Rectal Exam - Female: deferred Skin General skin exam: no rashes or lesions noted Neuro General: patient oriented x3, gait normal and no focal motor deficits Coding Level of Care Code Est Pt Level 4 (13319) Complex EM visit Add On G2211 Diagnoses GERD with esophagitis K21.00 Primary hypertension I10 Hypertension type: primary hypertension IFG (impaired fasting glucose) R73.01 Right knee pain M25.561 Assessment & Plan Assessment & Plan (1) GERD with esophagitis: Code(s): K21.00 - Gastro-esophageal reflux disease with esophagitis, without bleeding Category: Medical Plan: We will switch back to omeprazole 20 mg bid (2) HTN (hypertension): Code(s): I10 - Essential (primary) hypertension Category: Medical Qualifiers: Hypertension type: primary hypertension Qualified Code(s): I10 - Essential (primary) hypertension Plan: WNL. Continue current regimen (3) IFG (impaired fasting glucose): Code(s): R73.01 - Impaired fasting glucose Category: Medical Plan: Labs ordered. We will monitor. (4) Right knee pain: Code(s): M25.561 - Pain in right knee Category: Medical Plan: xr ordered referral to ortho Orders: Referrals Orthopedics Referral M25.561 - Pain in right knee Medications: New omeprazole 20 mg PO BID 180 caps 3RF furosemide (Lasix) 20 mg PO DAILY 30 tabs 0RF Discontinued pantoprazole Discontinued Reason: Doctor's Order 40 mg PO DAILY 90 tabs 0RF
[2025-01-06 14:04] VITALS: BP 136/84; PULSE 83; RESP 14; O2SAT 96; BMI 31.5
--- OUTSIDE RECORDS SUMMARY | 2025-01-06 17:33 | XMS_ITS | Patient Health Record ---
Author Organization [facility] [place] Address [address], [place] [id number] Care Team Providers Care Palm And Back Forger Name Role Phone Lewis Ho DO Primary Care Provider Unavailab Adina Lund Unavailable [phone] Allergies No Known Allergies Reason For Referral No Information Medications Medication SIG (Take, Route, Fr equency, Duration) Notes Start Date End Date Status Zanaflex 4 MG other tid Oral 05/20/2015 Active Fioricet 50-300-40 MG other 1 q 6 hours Oral 05/20 Active Immunizations Vaccine Route Administration Date Status Comme nts Influenza (whole) ID Intradermal 03/09/2015 Others Problems Problem Type SNOMED Code ICD Code Onset Dates Problem Status W/U Status Risk Notes Problem Cervical radiculopathy (50775055) Radiculopathy, cervical region (M54.12) 05/20/19 16 Active confirmed Problem Cervicalgia (64352190) Cervicalgia (M54.2) 05/20/19 16 Problem resolved confirmed Stop Date: Problem Headache (17906542) Headache (R51) 05/20/19 16 Active confirmed Problem History of arthrodesis (324480222) Arthrodesis status (Z98.1) 05/20/19 16 Active confirmed Plan Of Treatment No Information Medical (General) History Surgical History Surgery Date(Month/Year) History of c5-t7 fusion. PAST SurgHX Til l 05/20/2015
== END 2025-01-06 14:46 | disposition home or self-care (01) ==
LOC: HO.HMCFM 13:54
PROVIDERS: PCP Physician Assistant; Visit Provider Physician Assistant
DX: K21.00 Gastro-esophageal reflux disease with esophagitis, without bleeding (principal); I10 Essential (primary) hypertension; R73.01 Impaired fasting glucose; M25.561 Pain in right knee

== ENCOUNTER → 2025-01-06 13:54 | Outpatient (BNVA) | payer MEDICARE, MEDICAID, SELFPAY | PROVIDERS: PCP Physician Assistant; Visit Provider Physician Assistant | DX: I10 Essential (primary) hypertension (principal); E78.5 Hyperlipidemia, unspecified; F41.9 Anxiety disorder, unspecified; M54.2 Cervicalgia; G89.29 Other chronic pain; M25.475 Effusion, left foot; M79.661 Pain in right lower leg; K21.00 Gastro-esophageal reflux disease with esophagitis, without bleeding; R73.01 Impaired fasting glucose; M25.561 Pain in right knee | CPT/HCPCS: 99212 ==

== ENCOUNTER 2025-02-17 13:35 | Outpatient (REF) | payer MEDICARE, MEDICAID, SELFPAY ==
--- NOTE | ~2025-02-17 | XR_ITS ---
EXAMINATION: XR KNEE, RIGHT CLINICAL INFORMATION: M25.561 - Pain in right knee COMPARISON: None available. TECHNIQUE: Three views of the right knee. FINDINGS: There is minimal narrowing of medial and lateral joint spaces. Minimal chondrocalcinosis is visible in the medial meniscus greater than the lateral meniscus. Small marginal osteophytes are evident along the medial tibial plateau and involving medial trochlea. There is no joint effusion. There are mild vascular calcifications. 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 Electronically signed by: Cody Lewis MD 02/17/2025 01:58 PM EDT
== END 2025-02-17 13:36 | disposition home or self-care (01) ==
LOC: HO.HOSX 13:35
PROVIDERS: PCP Physician Assistant; Visit Provider Orthopaedic Surgery
DX: S83.241A Other tear of medial meniscus, current injury, right knee, initial encounter (principal); X58.XXXA Exposure to other specified factors, initial encounter
CPT/HCPCS: 73562; 99202

== ENCOUNTER 2025-02-17 13:35 | Outpatient (AMB) | payer MEDICARE, MEDICAID, SELFPAY ==
--- NOTE | 2025-02-17 13:54 | MHC.OFFVIS ---
Vital Signs 02/17/25 13:58 Height 4 ft 10 in Weight 146 lb BMI 30.5 Intake Visit Reasons: Right knee pain and giving way Intake Note: Christine is a 70 year old female who presents with complaints of progressively worsening right knee pain and giving way. The patient states that her symptoms have gotten worse over the last few months in spite of continued non operative treatments. Most of her pain is along the medial and posterior aspects of her knee. The patient has tried Tylenol, meloxicam, gabapentin and physical therapy exercises which aggravated her pain. Allergies No Known Allergies Allergy (Verified 01/06/25 14:03) Medication List - Last Reconciled 02/17/25 by Saúl Greenberg MD amitriptyline 50 mg PO BEDTIME amlodipine 5 mg PO DAILY wctogrkdvq-gamkscdnmjggb-dfsa 50-300-40 mg (Fioricet) 1 cap PO Q8H PRN furosemide (Lasix) 20 mg PO DAILY gabapentin 100 mg PO TID 90 days meloxicam 15 mg PO DAILY omeprazole 20 mg PO BID rosuvastatin 20 mg PO BEDTIME PFSH Medical History Family history of sudden cardiac GERD (gastroesophageal reflux disease) Chest discomfort Tension headache IFG (impaired fasting glucose) Hyperlipidemia HTN (hypertension) Generalized anxiety disorder Chronic neck pain Alkaline phosphatase elevation Surgical History Hx of colonoscopy S/P cervical discectomy Family History Mother Colon cancer Heart attack Social History Housing: Other (mobile home with sister) Alcohol intake: never Patient Tobacco Use Status: Former Tobacco user Cigarette Packs Per Day: 1 Cigarettes Per Day: 10 Years Smoked: 2 e-Cigarette/Vaping Use: Never Used service: No Current occupational status: retired Cognitive needs: No Hearing needs: No Vision needs: Yes (glasses) Physical Exam Vital Signs: BMI result Body Mass Index 30.5 Const Other: Well-nourished well-developed very friendly female awake alert and oriented x3 in no acute distress Extrem Other: Right knee examination shows a minimal effusion, mild crepitus with range of motion, tenderness along her medial joint line, positive Phuong's test, no instability Results Reviewed Results Reviewed: Standing full weight-bearing x-rays of the patient's right knee show mild diffuse joint space narrowing, no acute bony abnormalities Assessment & Plan Assessment & Plan (1) Tear of medial meniscus of right knee: Code(s): S83.241A - Other tear of medial meniscus, current injury, right knee, initial encounter Category: Medical Plan Ms. Parra presents with right knee pain and mechanical symptoms most likely due to a medial meniscus tear. Thus, I will send the patient for an MRI of her right knee for further evaluation. I also gave her a prescription for Celebrex to help with her discomfort in the meantime. I will see the patient following the MRI to discuss the findings and treatment options. Feel free to call me at any time should questions regarding her orthopedic management arise. I spent 20 minutes in reviewing the patient's records and imaging studies, seeing the patient and documenting in the medical record. Orders: Orders XR knee RT 3V Today M25.561 - Pain in right knee Medications: New celecoxib (Celebrex) 200 mg PO DAILY PRN 30 caps 3RF pain Coding Level of Care Code New Pt Level 3 (35709) Complex EM visit Add On G2211 Diagnoses Tear of medial meniscus of right knee S83.241A
[2025-02-17 13:58] VITALS: BMI 30.5
--- OUTSIDE RECORDS SUMMARY | 2025-02-17 17:24 | XMS_ITS | Patient Health Record ---
Author Organization [facility] [place] Address [address], [place] [id number] Care Team Providers Care Sales Order Coordinator Name Role Phone Lewis Ho DO Primary Care Provider Unavailab Adina Lund Unavailable [phone] Allergies No Known Allergies Reason For Referral [...] W/U Status Risk Notes Problem Cervical radiculopathy (18794859) Radiculopathy, cervical region (M54.12) 05/20/19 16 Active confirmed Problem Cervicalgia (10498605) Cervicalgia (M54.2) 05/20/19 16 Problem resolved confirmed Stop Date: Problem Headache (47232370) Headache (R51) 05/20/19 16 Active confirmed Problem History of arthrodesis (160589251) Arthrodesis status (Z98.1) 05/20/19 16 Active confirmed Plan Of Treatment No Information Medical (General) History Surgical History Surgery Date(Month/Year) History of c5-t7 fusion. PAST SurgHX Til l 05/20/2015
== END 2025-02-17 14:17 | disposition home or self-care (01) ==
LOC: HO.HOS 13:36
PROVIDERS: PCP Physician Assistant; Visit Provider Orthopaedic Surgery
DX: S83.241A Other tear of medial meniscus, current injury, right knee, initial encounter (principal)
CPT/HCPCS: 99204; G2211

== ENCOUNTER → 2025-02-17 13:46 | Outpatient (BNV) | payer MEDICARE, MEDICAID, SELFPAY | PROVIDERS: PCP Physician Assistant; Visit Provider Radiology Diagnostic Radiology | DX: M17.11 Unilateral primary osteoarthritis, right knee (principal) | CPT/HCPCS: 73562 ==